=== PATIENT | male | born 1980 | race Caucasian/White ===

== ENCOUNTER → 2021-04-13 09:21 | Outpatient (CLI) | payer OTHER, SELFPAY ==
--- NOTE | ~2021-04-13 | US_ITS ---
EXAMINATION: US abdomen complete EXAM DATE: 04/13/2021 10:10 INDICATION: Liver disease. TECHNIQUE: Multiple grayscale and Doppler images of the complete abdomen were obtained (by a technolo gist who performed the scan) and subsequently reviewed. There is no prior study for comparison. FINDINGS: The abdominal aorta is normal in caliber. Visualized portion IVC is patent. The pancreatic head a nd body are normal in appearance. The pancreatic tail is not visualized. There is echogenic liver parenchyma, hepatic steatosis. There are no focal liver lesions identified. There is no evidence of intrahepatic biliary duct dilation. Portal venous flow was seen in the he patopedal, normal direction and has normal Doppler waveform. Common bile duct measures 11 mm, which is normal. The gallbladder wall is normal in thickness, with e xpected amount of distention. No sonographic evidence of pericholecystic fluid. There is no choleli thiases. Technologist performing exam reports patient did not demonstrate sonographic Orlando's sign. Please note that this sign is less reliable in patients who have received pain medication. Right kidney: There is normal contour and echogenicity. It measures 12.6 x 3.6 x 6.8 centimeters. There are no focal renal lesions identified. There is no hydronephrosis. Left kidney: There is normal contour and echogenicity. It measures 12.3 x 5.8 x 5.8 centimeters. T here are no focal renal lesions identified. There is no hydronephrosis. The spleen measures 11.3 centimeters and is morphologically normal. IMPRESSION: 1. Hepatic steatosis. Reviewed, dictated and finalized at location A. IMPRESSION: 1. Hepatic steatosis.
== END ==
PROVIDERS: PCP Emergency Medicine; Visit Provider Emergency Medicine
DX: K76.9 Liver disease, unspecified (principal); K76.0 Fatty (change of) liver, not elsewhere classified
CPT/HCPCS: 76700

== ENCOUNTER 2024-08-24 01:29 | Emergency (ER) | payer OTHER, SELFPAY ==
--- NOTE | ~2024-08-24 | CT_ITS ---
Non-contrast CT scan of the Abdomen and Pelvis Clinical indication: Left lower quadrant pain Technique: 2.5 mm axial scans were obtained through the abdomen and pelvis without intravenous or or al contrast. Dose reduction technique was used on this scan by utilizing automated exposure control a nd iterative reconstruction technique. The dose-length product (DLP) was 1938.30 mGy-cm. Findings: Images through the lung bases reveal no abnormalities. 5 mm left UVJ stone present, with mild left hydroureteronephrosis and mild left perinephric stranding . No right renal or right ureteral stone. No right hydronephrosis. There is diffuse hepatic steatosis. The spleen, pancreas, gallbladder, and adrenals appear normal. T here is no aortic aneurysm. There is no evidence of bowel obstruction. Images through the pelvis were performed. There is no evidence of ascites or lymphadenopathy. Urinary bladder otherwise unremarkable. Prostate gland and seminal vesicles are unremarkable. Impression: 5 mm left UVJ stone with mild left hydroureteronephrosis. Diffuse hepatic steatosis. Reviewed, dictated and finalized at [facility]. [employer]OR OF MANAGED SERVICES Impression: 5 mm left UVJ stone with mild left hydroureteronephrosis. Diffuse hepatic steatosis.
--- NOTE | ~2024-08-24 | US_ITS ---
Testicular ultrasound with doppler. Indication: Right testicular pain. Technique: Real-time sonography the scrotum was performed. Color flow Doppler and Doppler spectral an alysis were performed. Findings: The testes are homogeneous in echotexture bilaterally. There is no evidence of an intrates ticular mass. The right testis measures 2.3 x 1.2 x 1.9 cm and the left 2.1 x 1.5 x 1.8 cm. There is color-flow seen to both testes. Arterial and venous spectral waveforms are seen in both testes. There is no sonographic evidence of torsion. There is a 3 mm right epididymal cyst or spermatocele. Left e pididymis unremarkable. Impression: 3 mm right epididymal cyst or spermatocele. No testicular mass or torsion. Reviewed, dictated and finalized at [facility]. ODS ANALYST DATA PROCESSING Impression: 3 mm right epididymal cyst or spermatocele. No testicular mass or torsion.
[2024-08-24 01:32] VITALS: BP 150/102; PULSE 86; RESP 20; TEMP 36.8; O2SAT 98
[2024-08-24 05:06] VITALS: PULSE 85; RESP 17; O2SAT 99
[2024-08-24] MEDS: HYDROmorphone HCL INJ (*CRX) 1 MG/ML SYR IV PUSH (05:32)
[2024-08-24] MEDS: SODIUM CHLORIDE 0.9% IV 1,000 ML 999 ML IV CONT (05:33)
[2024-08-24 05:46] LABS: Basophils Absolute Auto 0.1 K/mm3 (0.0-0.1); Basophils Percent Auto 0.8 % (0.2-1.2); Eosinophils Absolute Auto 0.2 K/mm3 (0-0.3); Eosinophils Percent Auto 1.1 % (0-4.4); Hematocrit 45.8 % (42.0-52.0); Hemoglobin 16.1 g/dL (14.0-18.0); Immature Granulocyte Absolute 0.07 K/mm3 (0.00-0.031); Immature Granulocyte Percent A 0.4 % (0-0.5); Lymphocytes Percent Auto 10.2 % (18.3-44.2); Mean Corpuscular HGB Conc 35.2 g/dl (32-36); Mean Corpuscular Hemoglobin 31.3 pg (26-34); Mean Corpuscular Volume 89.1 fl (80-100); Mean Platelet Volume 9.5 fl (7.4-10.4); Monocytes Percent Auto 6.4 % (2.6-8.5); Neutrophils Absolute Auto 12.7 K/mm3 (1.3-6.7); Neutrophils Percent Auto 81.1 % (45.5-73.1); Platelet Count Result 252 k/mm3 (150-375); Red Blood Count 5.14 M/mm3 (4.6-6.20); White Blood Count 15.7 K/mm3 (4.5-10.0)
[2024-08-24 05:54] LABS: Add Urine Microscopic? NO; Appearance Urine Clear (Clear); Bacteria Urine None Seen /hpf; Bilirubin Urine Negative (Negative); Blood Urine Non-Hemolyzed Trace (Negative); Color Urine Yellow (Yellow); Glucose Urine UA Negative (Negative); Ketones Urine Trace mg/dL (Negative); Leukocyte Esterase Ur Negative LEU/UL (Negative); Nitrate Urine Negative (Negative); Non Pathogenic Casts 0-2; Protein Urine Negative (Negative); RBC Urine 0-2 /hpf (0-2); Specific Grav Ur 1.021 (1.001-1.035); Squamous Epithelial Cell Urine None Seen /hpf (Few); Urobilinogen Urine 0.2 mg/dL (<2.0); WBC Urine 0-5 /hpf (0-3)
[2024-08-24 05:57] LABS: Alanine Aminotransferase 76 U/L (6-50); Albumin Level 4.7 g/dL (3.5-5.1); Alkaline Phosphatase 70 U/L (38-126); Anion Gap 4 mmol/L (4-12); Aspartate Amino Transferase 34 U/L (17-59); Bilirubin,Total 0.7 mg/dL (0.2-1.3); Blood Urea Nitrogen 20 mg/dL (9-20); Calcium 9.6 mg/dL (8.4-10.2); Carbon Dioxide 29 mmol/L (22-30); Chloride 104 mmol/L (98-107); Estimated CRCL calculation 83 ml/min; Estimated Glomerular Filt Rate 51; Glucose 134 mg/dL (65-110); Potassium 4.4 mmol/L (3.4-5.0); Sodium 137 mmol/L (137-145)
--- NOTE | 2024-08-24 06:01 | ED.GENADULT ---
HPI - General Adult General Chief complaint: Nausea/Vomiting/Diarrhea Stated complaint: abd pain, n/v Time Seen by Provider: 08/24/24 05:00 History of Present Illness HPI narrative: this is a 44-year-old male presenting ED with chief complaint of left lower quadrant abdominal pain. Patient says he has got a throbbing pain in his left flank lower quadrant and left testicle. This is been on off throughout the day. He had a virtual visit with his primary care physician as mentioned instructed to come to the ED. patient has had associated nausea vomiting. Denies fevers chills chest pain difficulty breathing dysuria urgency or frequency. Related Data Allergies Allergy/AdvReac Type Severity Reaction Status Date / Time iodine Allergy Rash Verified 08/24/24 06:50 Exam Narrative: APPEARANCE: No apparent distress. Head: atraumatic. EYES: EOMI, NOSE: Atraumatic NECK: Trachea midline RESPIRATORY: No increased rate of breathing CARDIOVASCULAR: RRR, ABDOMINAL: Tenderness palpation left quadrant with voluntary guarding. no CVA tenderness genital exam: testicles have normal lie, no significant tenderness on exam, cremasteric intact MUSCULOSKELETAl: No obvious deformities NEURO: Alert. Moving 4/4 extremities SKIN:: Warm, dry. Normal color PSYCHIATRIC: Normal affect Course Vital Signs Vital signs: Vital Signs Temperature 98.2 F 08/24/24 01:32 Pulse Rate 86 08/24/24 01:32 Respiratory Rate 20 08/24/24 01:32 Blood Pressure 150/102 H 08/24/24 01:32 Pulse Oximetry 98 08/24/24 01:32 Oxygen Delivery Room Air 08/24/24 01:32 Temperature 98.2 F 08/24/24 01:32 Pulse Rate 72 08/24/24 06:49 Respiratory Rate 17 08/24/24 06:49 Blood Pressure 160/91 H 08/24/24 06:49 Pulse Oximetry 98 08/24/24 06:49 Oxygen Delivery Room Air 08/24/24 01:32 Medical Decision Making [facility] Narrative Medical decision making narrative: -Course: 44-year-old male presenting with left-sided abdominal pain radiating his testicles. CT abdomen pelvis showed a 5 mm UVJ stone. Urine not indicative infection. White count elevated but likely reactive. Scrotal ultrasound negative. Patient's pain was controlled in ED. He already has a urologist Dr. Vincent who he will follow up with. Given return precautions. -DDX includes but is not limited to: Kidney stone, UTI, muscle strain, orchitis, testicular torsion, epididymitis -Independent interpretation of studies: white count 15.7 creatinine 1.5. No baseline available Vital Signs Vital Signs: Vital Signs Temperature 98.2 F 08/24/24 01:32 Pulse Rate 86 08/24/24 01:32 Respiratory Rate 20 08/24/24 01:32 Blood Pressure 150/102 H 08/24/24 01:32 Pulse Oximetry 98 08/24/24 01:32 Oxygen Delivery Room Air 08/24/24 01:32 Temperature 98.2 F 08/24/24 01:32 Pulse Rate 72 08/24/24 06:49 Respiratory Rate 17 08/24/24 06:49 Blood Pressure 160/91 H 08/24/24 06:49 Pulse Oximetry 98 08/24/24 06:49 Oxygen Delivery Room Air 08/24/24 01:32 Lab Data 08/24/24 05:36 08/24/24 05:36 Labs: Lab Results 08/24/24 Range/Units 05:36 WBC 15.7 H (4.5-10.0) K/mm3 RBC 5.14 (4.6-6.20) M/mm3 Hgb 16.1 (14.0-18.0) g/dL Hct 45.8 (42.0-52.0) % MCV 89.1 (80-100) fl MCH 31.3 (26-34) pg MCHC 35.2 (32-36) g/dl RDW 13.0 (11.5-14.5) % Plt Count 252 (150-375) k/mm3 MPV 9.5 (7.4-10.4) fl Immature Gran % (Auto) 0.4 (0-0.5) % Neut % (Auto) 81.1 H (45.5-73.1) % Lymph % (Auto) 10.2 L (18.3-44.2) % Mclean % (Auto) 6.4 (2.6-8.5) % Eos % (Auto) 1.1 (0-4.4) % Baso % (Auto) 0.8 (0.2-1.2) % Lymph # (Auto) 1.60 (0.9-3.2) K/mm3 Mclean # (Auto) 1.0 H (0.1-0.6) K/mm3 Eos # (Auto) 0.2 (0-0.3) K/mm3 Baso # (Auto) 0.1 (0.0-0.1) K/mm3 Abs Immat Gran (auto) 0.07 H (0.00-0.031) K/mm3 Absolute Neuts (auto) 12.7 H (1.3-6.7) K/mm3 Absolute Nucleated RBC 0.000 (0.0-0.012) K/mm3 Nucleated RBC % 0.0 (0.0-0.2) % Sodium 137 (137-145) mmol/L Potassium 4.4 (3.4-5.0) mmol/L Chloride 104 (98-107) mmol/L Carbon Dioxide 29 (22-30) mmol/L Anion Gap 4 (4-12) mmol/L BUN 20 (9-20) mg/dL Creatinine 1.50 H (0.7-1.3) mg/dL Estim Creat Clear Calc 83 ml/min Estimated GFR 51 L (59 - ) Glucose 134 H (65-110) mg/dL Calcium 9.6 (8.4-10.2) mg/dL Total Bilirubin 0.7 (0.2-1.3) mg/dL AST 34 (17-59) U/L ALT 76 H (6-50) U/L Alkaline Phosphatase 70 (38-126) U/L Total Protein 7.0 (6.3-8.2) g/dL Albumin 4.7 (3.5-5.1) g/dL Urine Color Yellow (Yellow) Urine Appearance Clear (Clear) Urine pH 5.0 (5.0-9.0) Ur Specific Helena 1.021 (1.001-1.035) Urine Protein Negative (Negative) mg/dL Urine Glucose (UA) Negative (Negative) mg/dL Urine Ketones Trace H (Negative) mg/dL Ur Blood (Man) Non-hemolyzed trace (Negative) Urine Nitrate Negative (Negative) Urine Bilirubin Negative (Negative) Urine Urobilinogen 0.2 (<2.0) mg/dL Leukocyte Esterase Rfl Negative (Negative) JAKE/UL Urine RBC 0-2 (0-2) /hpf Urine WBC 0-5 (0-3) /hpf Ur Squamous Epith Cells None seen (Few) /hpf Urine Bacteria None seen /hpf Urine Casts 0-2 Discharge Plan Discharge Clinical Impression: Kidney stone Patient Disposition: Home, Self-Care Condition: Stable Instructions: Antibiotic Form, Kidney Stones (ED) Additional Instructions: You were seen in the emergency department for a kidney stone. Please use Motrin/Tylenol for pain. Use oxycodone for breakthrough pain. Use Zofran for nausea. Please follow-up with your Urologist for further management. Please return if you develop severe pain, fevers or intractable nausea and vomiting. Patient Language: Vincentian Prescriptions: New acetaminophen 500 mg tablet 1,000 mg PO TID PRN (Reason: martha) 7 Days Qty: 42 0RF ibuprofen 800 mg tablet 800 mg PO TID PRN (Reason: pain) 7 Days Qty: 21 0RF ondansetron 4 mg tablet,disintegrating 4 mg PO Q8H PRN (Reason: nausea and vomiting) Qty: 30 0RF oxycodone 5 mg tablet 5 mg PO Q4H PRN (Reason: pain) Qty: 14 0RF tamsulosin [Flomax] 0.4 mg capsule 0.4 mg PO DAILY Qty: 30 0RF Follow-up/Referrals: Kathrine Ren MD [Physician] - 1 Week (Kidney stone ) Harley Villanueva MD [Primary Care Provider] -
[2024-08-24 06:49] VITALS: BP 160/91; PULSE 72; RESP 17; O2SAT 98
[2024-08-24] MEDS: HYDROmorphone HCL INJ (*CRX) 1 MG/ML SYR 0.5 MG IV PUSH (07:25)
[2024-08-24] MEDS: KETOROLAC 15 MG/ML VIAL (*BKC) IV PUSH (07:25)
[2024-08-24] MEDS: ACETAMINOPHEN 500 MG TABLET 1000 MG PO (07:25)
--- OUTSIDE RECORDS SUMMARY | 2024-08-31 04:48 | XMS_ITS ---
Author Organization [facility] Address [address] [place] [address] Care Team Providers Care Fig Bar Machine Operator Name Role Phone Tracy De La Torre Primary Care Provider Allison Luciano Unavailable [phone] Luis Hu [phone] REASON FOR VISIT SCIT - Traditional Schedule Allergy Immunotherapy (Week ) Medications Medication SIG (Take, Route, Frequency, Duration) Notes Start Date End Date Status EPINEPHrine 0.3 MG/0.3ML as directed Inj ection as needed for 30 days 06/19/2024 Active Trelegy Ellipta 200-62.5-25 MCG/ACT 1 puff Inhalation Once a day for 30 days Active Famotidine 20 MG 1 tablet Orally Twic e a day for 30 days Active Cetirizine HCl 10 MG 1 tablet Orally Twi ce a day for 30 days Active Montelukast Sodium 10 MG 1 tablet Orally Once a day for 90 days Active Nasal Wash - as directed Nasally Active EPINEPHrine 0.3 MG/0.3ML as directed Inj ection as directed for 30 days 05/31/2024 Active Dupixent Active Vanicream - as directed Externally Active Albuterol Sulfate HFA 108 (90 Base) MCG/ACT 2 puffs as needed Inhalation every 4 hrs for 30 days Active SIT (Cluster) variable - see record per schedule subcutaneous per schedule for 999 06/19/2024 Active Encounters Encounter Location Date Provider Diagnosis [facility] [address] [place] [address] 08/23/2024 Luis Hu Allergic rhinitis du e to pollen J30.1 ; Other allergic rhinitis J30.89 ; Allergic rhinitis due to animal (cat) (dog) hair and dander J30.81 and Other chronic allergic conjunctivitis H10.45 Assessments Encounter Date Diagnosis (ICD Code) Assessment Notes Treatment Notes Treatment Clinical Notes Section Notes 08/23/2024 Allergic rhinitis due to pollen (ICD-10 - J30.1) 08/23/2024 Other allergic rhinitis (ICD-10 - J30.89) 08/23/2024 Allergic rhinitis due to animal (cat) (dog) hair and dander (ICD-10 - J30.81) 08/23/2024 Other chronic allergic conjunctivitis (ICD-10 - H10.45) Plan Of Treatment Next Appt Details Follow Up: As scheduled, Marlena son: Provider Name:Luis Hu , 09/10/2024 07:40:00 AM, [address] [facility], [address], [address], Provider Name:Luis Hu , 09/17/2024 07:50:00 AM, [facility], [address], [address], Provider Name:Luis Hu , 09/25/2024 07:30:00 AM, [facility], [address], [address], Progress Notes * Vaughn PARKERDOB:1980 ( 44 yo M)Acc No.[id number]:08/23/2024 SCIT-Aeroallergen Patient:?Vaughn PARKER Provider:?Luis Hu MD :1980???Age:44 Y???Sex:Male Ramo e:08/23/2024 Address:[address], [place], [place] Pcp:Tracy De La Torre Subjective: * Chief Complaints: * ???SCIT - Traditional [place] Allergy Immunotherapy (Week ) * HPI: ???*Introduction:? The patient is here for scheduled immunotherapy. Please see the attached specialty form regarding the specifics of the administration of these vaccines. As per our protocol, they must undergo a screening health questionnaire (medication changes, reaction(s) to last immunotherapy dose(s), current health status, ACT (if appropriate), self-injectable epinephrine on patient(?) and peak flow (if appropriate)). Also, the patient must wait in our office for 30 minutes after receiving the vaccine(s). Furthermore, every patient must have an epinephrine pen (self-injectable) with them at the time of administration--and carry if for the following 1.5 hours after they leave our office. The patient must also have taken their antihistamine the day of the injection, preferably 2 hours prior. The consent form for SCIT (subcutaneous immunotherapy) is on file. * Medical History:? * Surgical History:? * Hospitalization/Major Diagno stic Procedure:? * Medications:?TakingEPINEPHri ne 0.3 MG/0.3ML Solution Auto-injector as directed Injection as directed Nasal Wash - Solution as directed Nasally Vanicream - Ointment as directed Externally Dupixent Albuterol Sulfate HFA 108 (90 Base) MCG/ACT Aerosol Solution 2 puffs as needed Inhalation every 4 hrs Trelegy Ellipta 200-62.5-25 MCG/ACT Aerosol Powder Breath Activated 1 puff Inhalation Once a day Cetirizine HCl 10 MG Tablet 1 tablet Orally Twice a day Famotidine 20 MG Tablet 1 tablet Orally Twice a day Montelukast Sodium 10 MG Tablet 1 tablet Orally Once a day EPINEPHrine 0.3 MG/0.3ML Solution Auto-injector as directed Injection as needed SIT (Cluster) variable - see record variable - see record per schedule subcutaneous per schedule Taking EPINEPHrine 0.3 MG/0.3ML Solution Auto-injector as directed Injection as directed Taking Nasal Wash - Solution as directed Nasally Taking Vanicream - Ointment as directed Externally Taking Dupixent Taking Albuterol Sulfate HFA 108 (90 Base) MCG/ACT Aerosol Solution 2 puffs as needed Inhalation every 4 hrs Taking Trelegy Ellipta 200-62.5-25 MCG/ACT Aerosol Powder Breath Activated 1 puff Inhalation Once a day Taking Cetirizine HCl 10 MG Tablet 1 tablet Orally Twice a day Taking Famotidine 20 MG Tablet 1 tablet Orally Twice a day Taking Montelukast Sodium 10 MG Tablet 1 tablet Orally Once a day Taking EPINEPHrine 0.3 MG/0.3ML Solution Auto-injector as directed Injection as needed Taking SIT (Cluster) variable - see record variable - see record per schedule subcutaneous per schedule Objective: * Vitals:? Assessment: * Assessment: 1.?Allergic rhinitis due to pollen - J30.1 (Primary)???2.?Other allergic rhinitis - J30.89???3.?Allergic rhinitis due to animal (cat) (dog) hair and dander - J30.81???4.?Other chronic allergic conjunctivitis - H10.45??? Plan: * Treatment: * Procedure Codes:?55383 IMMUN OTHERAPY INJECTIONS * Preventive Medicine:? ??Counseling:?Exercise?Avoid heavy lifting on days of allergy immunotherapy.?Medication instruction:?Injectable epinephrine education and instruction w/ discussion of signs and symptoms of anaphylaxis and reasons to seek urgent or emergent care, Watch for side effects of prescribed medications.?Education:?Able to return demonstration of self-injectable epinephrine.? * Follow Up:?As scheduled * Billing Information: * Visit Code:? * Procedure Codes:? 63569 IMMUNOTHERAPY INJECTIONS. * INE PULLER OVER Sign off status: Completed true * Provider:?Luis Hu MD Date:?08/23 Generated for Yessy carvalho/Paola/Kathy on:?08/31/2024 04:47 AM MACHINE PULLER OVER History and Physical Notes * HPI (History of Present Illness) Category Sub-Category Detail Notes Category Not es *Introduction The patient is here for scheduled immunotherapy. Please see the attached specialty form regarding the specifics of the administration of these vaccines. As per our protocol, they must undergo a screening health questionnaire (medication changes, reaction(s) to last immunotherapy dose(s), current health status, ACT (if appropriate), self-injectable epinephrine on patient(?) and peak flow (if appropriate)). Also, the patient must wait in our office for 30 minutes after receiving the vaccine(s). Furthermore, every patient must have an epinephrine pen (self-injectable) with them at the time of administration--and carry if for the following 1.5 hours after they leave our office. The patient must also have taken their antihistamine the day of the injection, preferably 2 hours prior. The consent form for SCIT (subcutaneous immunotherapy) is on file.
--- OUTSIDE RECORDS SUMMARY | 2024-08-31 04:48 | XMS_ITS | Encounter Summary ---
Author Organization [facility] Healthcare Address [address] [place] [address] Care Team Providers Care Dressing Room Attendant Name Role Phone rTacy De La Torre NP Primary Care Provider Azra Pinon MD Unavailable [phone] Kahtrine Ren MD Unavailable [phone] Encounter Details Date Type Department Care Team (Late st Contact Info) Description 05/21/[address] 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 Gender Identity Not on file Sexual Orientation Not on file documented as of this encounter Ordered Prescriptions Prescription Sig Dispense Quantity Refills Last Filled Start Date End Date semaglutide (Wegovy) 0.25 mg/0.5 mL auto-injector Inject 0.5 mL (0.25 mg total) under the skin every 7 days 3 mL 1 05/21/2024 08/06/2024 documented in this encounter Plan of Treatment Not on file documented as of this encounter Visit Diagnoses Not on filedocumented in this encounter Care Teams Dressing Room Attendant Relationship Specialty Start Date End Date Tracy De La Torre NP [address] [place], [place] [id number] PCP - General Family Medicine 05/16/24 Azra Pinon MD [address] [place], [place] [id number] Referring Physician Dermatology 05/16/24 Kathrine Ren MD [address] [place] [address] Consulting Physician Urology 05/16/24 Allison Holm [address] [facility] [address] [place] [address] Collections And Archives Director Dermatology 05/16/24 documented as of this encounter
--- OUTSIDE RECORDS SUMMARY | 2024-08-31 04:48 | XMS_ITS | Encounter Summary ---
Author Organization [facility] Healthcare Address [address] [place] [address] Care Team Providers Care Basketball Player Name Role Phone Tracy De La Torre NP Primary Care Provider [phone] Azra Pinon MD Unavailable [phone] Kathrine Ren MD Unavailable [phone] Encounter Details Date Type Department Care Team (Late st Contact Info) Description 08/23/2024 Patient Self-Triage [facility] HealthCare/ Physicians [facility] [place] [address] Mychart, Generic Provider [address] [place], [place] [id number] Social History Tobacco Use Types Packs/Day Years [...] on file 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 Gender Identity Not on file Sexual Orientation Not on file documented as of this encounter Plan of Treatment Not on file documented as of this encounter Visit Diagnoses Not on filedocumented in this encounter Care Teams Basketball Player Relationship Specialty Start Date End Date Tracy De La Torre NP [address] [facility] [address] [place] [address] PCP - General Family Medicine 05/16/24 Azra Pinon MD [address] [place] [address] Referring Physician Dermatology 05/16/24 Kathrine Ren MD [address] [place], [place] [phone] Consulting Physician Urology 05/16/24 Allison Holm [address] [facility] [address] [place] [address] Enterer Dermatology 05/16/24 documented as of this encounter
--- OUTSIDE RECORDS SUMMARY | 2024-08-31 04:48 | XMS_ITS | Patient Health Record ---
Author Organization [facility] Address [address] [place] [address] Care Team Providers Care Bulb Filler Name Role Phone Tracy De La Torre Primary Care Provider Allison Luciano Unavailable [phone] Luis Hu Unavailable [phone] Stephen Valencia Unavailable [phone] Allergies No Known Allergies Results Component Value Reference Range Notes Spirometry Reviewed date:04/10/2024 09:11:30 AM Interpretation:Abnormal Performing Lab: Notes/Report: Abnormal SpiroPreBronchodilator_FVC 4.55 SpiroPostBronchodilator_FEF25_75 0 SpiroPreBronchodilator_FEF25_75 3.17 SpiroPreBronchodilator_FEV1 3.36 SpiroPrecentPredictionPost_FEF25_75 0 SpiroPrecentPredictionPost_FEV1 0 SpiroPrecentPredictionPost_FEV1_OVER_FVC 0 SpiroPrecentPredictionPost_FVC 0 SpiroPrecentPredictionPre_FEF25_75 73.2 SpiroPrecentPredictionPre_FEV1 74 SpiroPrecentPredictionPre_FEV1_OVER_FVC 92.9 SpiroPrecentPredictionPre_FVC 79.7 SpiroPredicted_FEF25_75 4.33 SpiroPreBronchodilator_FEV1_OVER_FVC 73.84 SpiroPreBronchodilator_PEF 3.57 SpiroPostBronchodilator_FVC 0 SpiroPostBronchodilator_FEV1 0 SpiroPostBronchodilator_FEV1_OVER_FVC 0 SpiroPostBronchodilator_PEF 0 SpiroPredicted_FVC 5.71 SpiroPredicted_FEV1 4.54 SpiroPredicted_FEV1_OVER_FVC 79.52 SpiroPredicted_PEF 10.17 Spirometry Reviewed date:05/21/2024 10:59:17 AM Interpretation:Abnormal - FVL Performing Lab: Notes/Report: Abnormal - FVL SpiroPreBronchodilator_FVC 4.65 SpiroPostBronchodilator_FEF25_75 0 SpiroPreBronchodilator_FEF25_75 4.67 SpiroPreBronchodilator_FEV1 4.15 SpiroPrecentPredictionPost_FEF25_75 0 SpiroPrecentPredictionPost_FEV1 0 SpiroPrecentPredictionPost_FEV1_OVER_FVC 0 SpiroPrecentPredictionPost_FVC 0 SpiroPrecentPredictionPre_FEF25_75 107.9 SpiroPrecentPredictionPre_FEV1 91.4 SpiroPrecentPredictionPre_FEV1_OVER_FVC 112.3 SpiroPrecentPredictionPre_FVC 81.4 SpiroPredicted_FEF25_75 4.33 SpiroPreBronchodilator_FEV1_OVER_FVC 89.3 SpiroPreBronchodilator_PEF 5.31 SpiroPostBronchodilator_FVC 0 SpiroPostBronchodilator_FEV1 0 SpiroPostBronchodilator_FEV1_OVER_FVC 0 SpiroPostBronchodilator_PEF 0 SpiroPredicted_FVC 5.71 SpiroPredicted_FEV1 4.54 SpiroPredicted_FEV1_OVER_FVC 79.52 SpiroPredicted_PEF 10.17 Reason For Referral No Information Medications Medication SIG (Take, Route, Frequency, Duration) Notes Start Date End Date Status Cetirizine HCl 10 MG 1 tablet Orally Twi ce a day for 30 days Active Trelegy Ellipta 200-62.5-25 MCG/ACT 1 puff Inhalation Once a day for 30 days Active Albuterol Sulfate HFA 108 (90 Base) MCG/ACT 2 puffs as needed Inhalation every 4 hrs for 30 days Active Dupixent Active Vanicream - as directed Externally Active Nasal Wash - as directed Nasally Active EPINEPHrine 0.3 MG/0.3ML as directed Inj ection as directed for 30 days 05/31/2024 Active Montelukast Sodium 10 MG 1 tablet Orally Once a day for 90 days Active SIT (Cluster) variable - see record per schedule subcutaneous per schedule for 999 06/19/2024 Active EPINEPHrine 0.3 MG/0.3ML as directed Inj ection as needed for 30 days 06/19/2024 Active Famotidine 20 MG 1 tablet Orally Twic e a day for 30 days Active Social History Tobacco Use: Social History Observation Description Date Details (start date - stop date) Current Smoker NA - NA Tobacco Control (Standard) Question Answer Notes Tobacco use: Current smoker Problems Problem Type SNOMED Code ICD Code Onset Dates Problem Status W/U Status Risk Notes Problem Chronic allergic conjunctivitis (10052067) Other chronic allergic conjunctivitis (H10.45) Active confirmed Problem Allergic rhinitis caused by pollen (disorder) (24438079) Allergic rhinitis due to pollen (J30.1) Active confirmed Problem Allergic rhinitis (75819535) Other allergic rhinitis (J30.89) Active confirmed Problem Atopic dermatitis (23943126) Atopic dermatitis, unspecified (L20.9) Active confirmed Problem Allergic rhinitis caused by animal hair and dander (098067790839917) Allergic rhinitis due to animal (cat) (dog) hair and dander (J30.81) Active confirmed Vital Signs Oximetry 95 % 08/07/2024 Blood pressure diastolic 86 mm Hg 08/07/2024 Height 74 in 08/07/2024 Blood pressure systolic 131 mm Hg 08/07/2024 Weight 295 lbs 06/19/2024 BMI 37.87 kg/m2 06/19/2024 Encounters Encounter Location Date Provider Diagnosis [facility] [address] [facility] [employer] [address] [address] 04/09/2024 Allison Holm Atopic dermatitis, unspecified L20.9 ; Rash and other nonspecific skin eruption R21 ; Allergic rhinitis due to pollen J30.1 ; Allergic rhinitis due to animal (cat) (dog) hair and dander J30.81 ; Other allergic rhinitis J30.89 ; Other chronic allergic conjunctivitis H10.45 ; Wheezing R06.2 and Elevated blood-pressure reading, without diagnosis of hypertension R03.0 [facility] [address] [employer] [address] [address] 05/21/2024 Allison Holm Allergic rhinitis du e to pollen J30.1 ; Allergic rhinitis due to animal (cat) (dog) hair and dander J30.81 ; Other allergic rhinitis J30.89 ; Other chronic allergic conjunctivitis H10.45 ; Atopic dermatitis, unspecified L20.9 ; Rash and other nonspecific skin eruption R21 ; Wheezing R06.2 and Elevated blood-pressure reading, without diagnosis of hypertension R03.0 [facility] [address] [place] [address] [employer] [address] [address] 06/19/2024 Stephen Valencia Allergic rhinitis du e to pollen J30.1 ; Allergic rhinitis due to animal (cat) (dog) hair and dander J30.81 ; Other allergic rhinitis J30.89 ; Other chronic allergic conjunctivitis H10.45 ; Atopic dermatitis, unspecified L20.9 ; Rash and other nonspecific skin eruption R21 ; Wheezing R06.2 and Elevated blood-pressure reading, without diagnosis of hypertension R03.0 [facility] [address] [place] [address] [employer] [address] [address] 06/26/2024 Luis Hu Allergic rhinitis du e to pollen J30.1 ; Allergic rhinitis due to animal (cat) (dog) hair and dander J30.81 ; Other allergic rhinitis J30.89 and Other chronic allergic conjunctivitis H10.45 [facility] [address] [place] [address] 07/03/2024 Luis Hu Allergic rhinitis du e to pollen J30.1 ; Allergic rhinitis due to animal (cat) (dog) hair and dander J30.81 ; Other allergic rhinitis J30.89 and Other chronic allergic conjunctivitis H10.45 [facility] [address] [place] [phone] 07/12/2024 Luis Hu Allergic rhinitis du e to pollen J30.1 ; Allergic rhinitis due to animal (cat) (dog) hair and dander J30.81 ; Other allergic rhinitis J30.89 and Other chronic allergic conjunctivitis H10.45 [facility] [address] [place] [phone] 07/17/2024 Luis Hu Allergic rhinitis du e to pollen J30.1 ; Allergic rhinitis due to animal (cat) (dog) hair and dander J30.81 ; Other allergic rhinitis J30.89 and Other chronic allergic conjunctivitis H10.45 [facility] [address] [place], [place] [email or web address] [address] [address] 07/24/2024 Luis Hu Allergic rhinitis du e to pollen J30.1 ; Allergic rhinitis due to animal (cat) (dog) hair and dander J30.81 ; Other allergic rhinitis J30.89 and Other chronic allergic conjunctivitis H10.[address] [place] [address] [employer] [address] [address] 07/31/2024 Luis Hu Allergic rhinitis du e to pollen J30.1 ; Allergic rhinitis due to animal (cat) (dog) hair and dander J30.81 ; Other allergic rhinitis J30.89 and Other chronic allergic conjunctivitis H10.45 [facility] [address] [place] [address] [employer] [address] [address] 08/07/2024 Luis Hu Allergic rhinitis du e to pollen J30.1 ; Allergic rhinitis due to animal (cat) (dog) hair and dander J30.81 ; Other allergic rhinitis J30.89 and Other chronic allergic conjunctivitis H10.45 [facility] [address] [place] [address] [employer] [address] [address] 08/13/2024 Luis Hu Allergic rhinitis du e to pollen J30.1 ; Other allergic rhinitis J30.89 ; Allergic rhinitis due to animal (cat) (dog) hair and dander J30.81 and Other chronic allergic conjunctivitis H10.45 [facility] [address] [place] [address] [employer] [address] [address] 08/23/2024 Luis Hu Allergic rhinitis du e to pollen J30.1 ; Other allergic rhinitis J30.89 ; Allergic rhinitis due to animal (cat) (dog) hair and dander J30.81 and Other chronic allergic conjunctivitis H10.45 [facility] [address] [place], [place] [email or web address] [address] [address] 08/28/2024 Luis Hu Allergic rhinitis du e to pollen J30.1 ; Other allergic rhinitis J30.89 ; Allergic rhinitis due to animal (cat) (dog) hair and dander J30.81 and Other chronic allergic conjunctivitis H10.45 [facility] [address] [place], [place] [email or web address] [address] [address] 05/21/2024 Allison Holm [facility] [address] [place] [address] 05/30/[address] [facility] [address] [place] [address] 08/23/2024 Allison Holm Rash and other nonspecific skin eruption R21 Assessments Encounter Date Diagnosis (ICD Code) Assessment Notes Treatment Notes Treatment Clinical Notes Section Notes 04/09/2024 Rash and other nonspecific skin eruption (ICD-10 - R21) As above, Vaughn presents with complaints of erythematous and pruritic patches on his lower extremities. These symptoms seemed to start after he started treatment with Dupixent. No history of biopsies per the patient, however no records to review. - Consider atopic dermatitis vs contact dermatitis vs other. - Due to pruritus will start trial of Zyrtec BID, Pepcid BID and Singulair at night. - Follow-up skin care regimen as outlined above. - Consider patch testing with Dormer AC-1000, which we discussed today. Will trial skin care regimen first, then consider patch testing if symptoms do not improve. Discussed use all free and clear products. - Records requested from [facility]. - Follow-up in 4 weeks for further evaluation and management 04/09/2024 Atopic dermatitis, unspecified (ICD-10 - L20.9) Vaughn presents reporting history of atopic dermatitis diagnosed by [facility]. He reports long standing hsitroy of eczema on his hands. Approximately 12 months ago he was started on Dupixent every 2 weeks, which he feels has significantly improved his symptoms. Howver, he is now experiencing new rashes, primarily on his lower extremities. He describes the rash as erythematous and pruritic. Symptoms last > 3 weeks. He has been using topical clobetasol per dematology with mild noted benefit. No history of biopsy to rash on lower extremities. - Consider atopic dermatitis vs contact dermatitis vs other. - In regard to atopic dermatitis, continue Dupixent per dermatology. Highly consider SCIT, which we will discuss further next visit. - The mainstay of treatment is repairing the skin barrier. Discussed the role of fillagrin in maintaining this barrier. In people with eczema, this barrier is less strong and more permeable than it should be. - Discussed the Soak, Smear, & Seal technique. Plan on bathing in tepid warm water for 20 minutes daily. Upon exiting tub, pat dry with soft cotton towel and apply prescribed topical medication to any areas of eczema. Then apply a thick emollient to ALL skin surface to lock in moisture. Suggested Vanicream line. - Keep nails short and avoid scratching. - See plan below. - Follow-up in 4 weeks for further evaluation and management 05/21/2024 Allergic rhinitis due to pollen (ICD-10 - J30.1) Vaughn clearly suffers from atopic disease based upon our skin testing and clinical history. Accordingly, we have encouraged his medication regimen, discussed nasal washes and allergy-specific avoidance measures. We also discussed adjunctive therapies including subcutaneous, specific allergen immunotherapy as relates to the treatment and prevention of atopic disease. - Vaughn is interested in SCIT via rapid desensitization. Janeth to premedicate with Zyrtec. Will send AIE when Vaughn is starting SCIT. - Follow-up as scheduled to start SCIT 05/21/2024 Allergic rhinitis due to animal (cat) (dog) hair and dander (ICD-10 - J30.81) Follow allergen avoidance, meds and consider SCIT as an adjunctive treatment to current regimen 06/19/2024 Allergic rhinitis due to pollen (ICD-10 - J30.1) Vaughn clearly suffers from atopic disease based upon our skin testing and clinical history. Accordingly, we have encouraged his medication regimen, discussed nasal washes and allergy-specific avoidance measures. We elected to start SCIT via rapid desensitization which he tolerated without LL or systemic reaction. Continue to premedicate with Zyrtec. Keep AIE on hand 2 hours after SCIT - return in 1 week for SCIT adn 7 weeks for E&M 06/19/2024 Allergic rhinitis due to animal (cat) (dog) hair and dander (ICD-10 - J30.81) Follow allergen avoidance, meds and continue SCIT as an adjunctive treatment to current regimen 06/26/2024 Allergic rhinitis due to pollen (ICD-10 - J30.1) 07/03/2024 Allergic rhinitis due to pollen (ICD-10 - J30.1) 07/12/2024 Allergic rhinitis due to pollen (ICD-10 - J30.1) 07/17/2024 Allergic rhinitis due to pollen (ICD-10 - J30.1) 07/24/2024 Allergic rhinitis due to pollen (ICD-10 - J30.1) 07/31/2024 Allergic rhinitis due to pollen (ICD-10 - J30.1) 08/07/2024 Allergic rhinitis due to pollen (ICD-10 - J30.1) 08/13/2024 Allergic rhinitis due to pollen (ICD-10 - J30.1) 08/13/2024 Other allergic rhinitis (ICD-10 - J30.89) 08/23/2024 Allergic rhinitis due to pollen (ICD-10 - J30.1) 08/23/2024 Other allergic rhinitis (ICD-10 - J30.89) 08/23/2024 Rash and other nonspecific skin eruption (ICD-10 - R21) 08/28/2024 Allergic rhinitis due to pollen (ICD-10 - J30.1) 08/28/2024 Other allergic rhinitis (ICD-10 - J30.89) 08/28/2024 Allergic rhinitis due to animal (cat) (dog) hair and dander (ICD-10 - J30.81) 08/23/2024 Allergic rhinitis due to animal (cat) (dog) hair and dander (ICD-10 - J30.81) 08/13/2024 Allergic rhinitis due to animal (cat) (dog) hair and dander (ICD-10 - J30.81) 08/07/2024 Allergic rhinitis due to animal (cat) (dog) hair and dander (ICD-10 - J30.81) 07/31/2024 Allergic rhinitis due to animal (cat) (dog) hair and dander (ICD-10 - J30.81) 07/24/2024 Allergic rhinitis due to animal (cat) (dog) hair and dander (ICD-10 - J30.81) 07/17/2024 Allergic rhinitis due to animal (cat) (dog) hair and dander (ICD-10 - J30.81) 07/12/2024 Allergic rhinitis due to animal (cat) (dog) hair and dander (ICD-10 - J30.81) 07/03/2024 Allergic rhinitis due to animal (cat) (dog) hair and dander (ICD-10 - J30.81) 06/26/2024 Allergic rhinitis due to animal (cat) (dog) hair and dander (ICD-10 - J30.81) 06/19/2024 Other allergic rhinitis (ICD-10 - J30.89) Follow allergen avoidance, meds and continue SCIT as an adjunctive treatment to current regimen 05/21/2024 Other allergic rhinitis (ICD-10 - J30.89) Follow allergen avoidance, meds and consider SCIT as an adjunctive treatment to current regimen 04/09/2024 Allergic rhinitis due to pollen (ICD-10 - J30.1) Given the history and symptoms, skin testing was performed to common aeroallergens to determine atopic status. Vaughn clearly suffers from atopic disease based upon our skin testing and clinical history. Accordingly, we have introduced a new medication regimen, discussed nasal washes and allergy-specific avoidance measures. We also discussed adjunctive therapies including subcutaneous, specific allergen immunotherapy as relates to the treatment and prevention of atopic disease. - Vaughn reports only occasional upper airway symptoms. - Plan to discuss SCIT in further detail at his next follow-up. - Follow-up in 4 weeks as above 04/09/2024 Allergic rhinitis due to animal (cat) (dog) hair and dander (ICD-10 - J30.81) Follow allergen avoidance, meds and consider SCIT as an adjunctive treatment to current regimen 05/21/2024 Other chronic allergic conjunctivitis (ICD-10 - H10.45) Given ocular signs and symptoms I encouraged allergy avoidance measures and meds as above. If symptoms persist, consider adding additional medications including intraocular antihistamine/mast cell stabilizer, PRN and consider SCIT as an adjunctive measure 06/19/2024 Other chronic allergic conjunctivitis (ICD-10 - H10.45) Given ocular signs and symptoms I encouraged allergy avoidance measures and meds as above. If symptoms persist, consider adding additional medications including intraocular antihistamine/mast cell stabilizer, PRN and continue SCIT as an adjunctive measure 06/26/2024 Other allergic rhinitis (ICD-10 - J30.89) 07/03/2024 Other allergic rhinitis (ICD-10 - J30.89) 07/12/2024 Other allergic rhinitis (ICD-10 - J30.89) 07/17/2024 Other allergic rhinitis (ICD-10 - J30.89) 07/24/2024 Other allergic rhinitis (ICD-10 - J30.89) 07/31/2024 Other allergic rhinitis (ICD-10 - J30.89) 08/07/2024 Other allergic rhinitis (ICD-10 - J30.89) 08/13/2024 Other chronic allergic conjunctivitis (ICD-10 - H10.45) 08/23/2024 Other chronic allergic conjunctivitis (ICD-10 - H10.45) 08/28/2024 Other chronic allergic conjunctivitis (ICD-10 - H10.45) 08/07/2024 Other chronic allergic conjunctivitis (ICD-10 - H10.45) 07/31/2024 Other chronic allergic conjunctivitis (ICD-10 - H10.45) 07/17/2024 Other chronic allergic conjunctivitis (ICD-10 - H10.45) 07/24/2024 Other chronic allergic conjunctivitis (ICD-10 - H10.45) 07/12/2024 Other chronic allergic conjunctivitis (ICD-10 - H10.45) 07/03/2024 Other chronic allergic conjunctivitis (ICD-10 - H10.45) 06/26/2024 Other chronic allergic conjunctivitis (ICD-10 - H10.45) 06/19/2024 Atopic dermatitis, unspecified (ICD-10 - L20.9) Vaughn reprots history of atopic dermatitis diagnosed by [facility]. He reports long standing hsitroy of eczema on his hands. Approximately 12 months ago he was started on Dupixent every 2 weeks, which he feels has significantly improved his symptoms. However, he is now experiencing new rashes, primarily on his lower extremities. He describes the rash as erythematous and pruritic. Symptoms last > 3 weeks. He has been using topical clobetasol per dematology with mild noted benefit. No history of biopsy to rash on lower extremities. - Consider atopic dermatitis vs contact dermatitis vs other. - In regard to atopic dermatitis, continue Dupixent per dermatology. Continue SCIT as abvoe - The mainstay of treatment is repairing the skin barrier. Discussed the role of fillagrin in maintaining this barrier. In people with eczema, this barrier is less strong and more permeable than it should be. - Discussed the Soak, Smear, & Seal technique. Plan on bathing in tepid warm water for 20 minutes daily. Upon exiting tub, pat dry with soft cotton towel and apply prescribed topical medication to any areas of eczema. Then apply a thick emollient to ALL skin surface to lock in moisture. Suggested Vanicream line. - Keep nails short and avoid scratching. - See plan below. 04/09/2024 Other allergic rhinitis (ICD-10 - J30.89) Follow allergen avoidance, meds and consider SCIT as an adjunctive treatment to current regimen 05/21/2024 Atopic dermatitis, unspecified (ICD-10 - L20.9) Vaughn presents reporting history of atopic dermatitis diagnosed by [facility]. He reports long standing hsitroy of eczema on his hands. Approximately 12 months ago he was started on Dupixent every 2 weeks, which he feels has significantly improved his symptoms. However, he is now experiencing new rashes, primarily on his lower extremities. He describes the rash as erythematous and pruritic. Symptoms last > 3 weeks. He has been using topical clobetasol per dematology with mild noted benefit. No history of biopsy to rash on lower extremities. - Consider atopic dermatitis vs contact dermatitis vs other. - In regard to atopic dermatitis, continue Dupixent per dermatology. Highly consider SCIT, which Vaughn is interested in. - The mainstay of treatment is repairing the skin barrier. Discussed the role of fillagrin in maintaining this barrier. In people with eczema, this barrier is less strong and more permeable than it should be. - Discussed the Soak, Smear, & Seal technique. Plan on bathing in tepid warm water for 20 minutes daily. Upon exiting tub, pat dry with soft cotton towel and apply prescribed topical medication to any areas of eczema. Then apply a thick emollient to ALL skin surface to lock in moisture. Suggested Vanicream line. - Keep nails short and avoid scratching. - See plan below. - Follow-up as above to start SCIT 05/21/2024 Rash and other nonspecific skin eruption (ICD-10 - R21) As above, Vaughn presents with complaints of erythematous and pruritic patches on his lower extremities. These symptoms seemed to start after he started treatment with Dupixent. No history of biopsies per the patient, however no records to review. - Consider atopic dermatitis vs contact dermatitis vs other. - Due to pruritus will continue Zyrtec BID and Pepcid BID, which Vaughn feels has improved his symptoms. - Follow-up skin care regimen as outlined above. - Consider patch testing with Dormer AC-1000, which we discussed again today. Vaughn admits to poor compliance with skincare regimen, reports soaking in the bath tub approximately three times in the last 4 weeks. Discussed use all free and clear products. - Records requested from [facility]. Recommend obtaining a biopsy of persistent rash on Vaughn's calf. - Follow-up as above to start SCIT 04/09/2024 Other chronic allergic conjunctivitis (ICD-10 - H10.45) Given ocular signs and symptoms I encouraged allergy avoidance measures and meds as above. If symptoms persist, consider adding additional medications including intraocular antihistamine/mast cell stabilizer, PRN and consider SCIT as an adjunctive measure 06/19/2024 Rash and other nonspecific skin eruption (ICD-10 - R21) As above, Vaughn presents with complaints of erythematous and pruritic patches on his lower extremities. These symptoms seemed to start after he started treatment with Dupixent. No history of biopsies per the patient, however no records to review. - Consider atopic dermatitis vs contact dermatitis vs other. - Due to pruritus will continue Zyrtec BID and Pepcid BID, which Vaughn feels has improved his symptoms. - Follow-up skin care regimen as outlined above. - Consider patch testing with Dormer AC-1000, which we discussed again today. Vaughn admits to poor compliance with skincare regimen, reports soaking in the bath tub approximately three times in the last 4 weeks. Discussed use all free and clear products. - Records requested from [facility]. Recommend obtaining a biopsy of persistent rash on Vaughn's calf. - Follow-up as above to start SCIT 05/21/2024 Wheezing (ICD-10 - R06.2) Vaughn endorses occasional wheezing, which he notices primarily at night. He also reports occasional cough, no shortness of breath. Vaughn has history of sleep apnea, on CPAP managed by his PCP. Vaughn is a current smoker, smoking approximately 4 cigarettes per day for 20 years. He has never been hospitalized due to lower airway symptoms. - Spirometry obtained last visit that showed normal FVC, however TLC not measured, normal FEV1 and FEV%. Discussed BD challenge, however deferred last visit. Repeat spirometry today showed normal FEV1, FVC and FEV%, though variations in technique made interpretation difficult. - Due to symptoms and spirometry, will continue daily Trelegy. Plan to step-up to high dose. He is aware to rinse his mouth after use. - Continue ARCHANA as-needed. - Consider consult with pulmonology due to history of sleep apnea and smoking history, which we again discussed today. Vaughn plans to schedule a visit with pulmonary. - Follow-up as above 04/09/2024 Wheezing (ICD-10 - R06.2) Vaughn endorses occasional wheezing, which he notices primarily at night. He also reports occasional cough, no shortness of breath. Vaughn has history of sleep apnea, on CPAP managed by his PCP. Vaughn is a current smoker, smoking approximately 4 cigarettes per day for 20 years. He has never been hospitalized due to lower airway symptoms. - Spirometry obtained today that showed normal FVC, however TLC not measured, normal FEV1 and FEV%. Discussed BD challenge, however deferred today. - Due to symptoms and spirometry, will start trial of low-dose Trelegy. Samples provided and proper demonstration provided. He is aware to rinse his mouth after use. - Start ARCHANA as-needed, needs AAP next visit. - Consider consult with pulmonology due to history of sleep apnea and smoking history. - Follow-up in 4 weeks for repeat spirometry and further evaluation and management 06/19/2024 Wheezing (ICD-10 - R06.2) Vaughn endorses occasional wheezing, which he notices primarily at night. He also reports occasional cough, no shortness of breath. Vaughn has history of sleep apnea, on CPAP managed by his PCP. Vaughn is a current smoker, smoking approximately 4 cigarettes per day for 20 years. He has never been hospitalized due to lower airway symptoms. - Last spirometry obtained last visit that showed normal FVC, however TLC not measured, normal FEV1 and FEV%. Repeat spirometry showed normal FEV1, FVC and FEV%, though variations in technique made interpretation difficult. - Due to symptoms and spirometry, will continue daily hihh-dose Trelegy. He is aware to rinse his mouth after use. - Continue ARCHANA as-needed. - Consider consult with pulmonology due to history of sleep apnea and smoking history,Vaughn plans to schedule a visit with pulmonary. - Follow-up as above 05/21/2024 Elevated blood-pressure reading, without diagnosis of hypertension (ICD-10 - R03.0) BP elevated today without symptoms of urgency or emergency. Continue serial checks and follow-up with PCP 04/09/2024 Elevated blood-pressure reading, without diagnosis of hypertension (ICD-10 - R03.0) BP elevated today without symptoms of urgency or emergency. Continue serial checks and follow-up with PCP 06/19/2024 Elevated blood-pressure reading, without diagnosis of hypertension (ICD-10 - R03.0) BP elevated today without symptoms of urgency or emergency. Continue serial checks and follow-up with PCP 06/26/2024 Other 07/03/2024 Other 07/12/2024 Other 07/17/2024 Other 07/24/2024 Other 07/31/2024 Other 08/07/2024 Other Plan Of Treatment Next Appt Details Provider Name:Luis SmithJoanne Hu , 09/10/2024 07:40:00 AM, [address] [employer], [address] [place] [address], [address], Provider Name:Luis Edmondson Fritz , 09/17/2024 07:50:00 AM, [address] [employer], [address] [place] [address], [address], Provider Name:Luis SmithJoanne Hu , 09/25/2024 07:30:00 AM, [address] [employer], [address], [address], Insurance Providers Payer Name Payer Address Payer Phone Subscriber Number Group Number Insured Name Patient Relationship to Insured Coverage Start Date Coverage End Date A[employer] Choice II [address] [address] [place] [address] [id number] Vaughn Parker Self - patient is the insured Medical (General) History Medical History History ICD Code Allergic rhinitis due to pollen J30.1 Allergic rhinitis due to animal (cat) (d og) hair and dander J30.81 Other allergic rhinitis J30.89 Other chronic allergic conjunctivitis H1 0.45 Atopic dermatitis, unspecified L20.9
--- OUTSIDE RECORDS SUMMARY | 2024-08-31 04:48 | XMS_ITS ---
Author Organization [facility] Address [address] [place] [address] Care Team Providers Care Medical Records Specialist Name Role Phone Tracy De La Torre Primary Care Provider Allison Luciano [phone] REASON FOR VISIT Refill Medications Medication SIG (Take, Route, Frequency, Duration) Notes Start Date End Date Status Montelukast Sodium 10 MG 1 tablet Orally Once a day for 90 days Active Encounters Encounter Location Date Provider Diagnosis [facility] [address] [place] [address] 08/23/2024 Allison Holm Rash and other nonspecific skin eruption R21 Assessments Encounter Date Diagnosis (ICD Code) Assessment Notes Treatment Notes Treatment Clinical Notes Section Notes 08/23/2024 Rash and other nonspecific skin eruption (ICD-10 - R21) Plan Of Treatment Medication Medication Name Sig Start Date Stop Date Notes Montelukast Sodium 10 MG 1 tablet Orally Once a day for 90 days Next Appt Details Provider Name:Luis Hu , 09/10/2024 07:40:00 AM, [address] [employer], [address], [address], Provider Name:Luis Hu , 09/17/2024 07:50:00 AM, [address] [employer], [address], [place], [address], Provider Name:Luis Hu , 09/25/2024 07:30:00 AM, [employer], [address], [place], [address], Progress Notes * Vaughn PARKERDOB:1980 ( 44 yo M)Acc No.[id number]:08/23/2024 Patient:?Vaughn PARKER :1980???Age:44 Y???Sex:Male Address: [address], [place], [address] * Refills? Refill Montelukast Sodium Tablet, 10 MG, Orally, 90, 1 tablet, Once a day, 90 days, Refills=0 * true * Date:? Generated for Yessy carvalho/Paola/Octavianoitting on:?08/31/2024 04:47 AM SUPERVISOR PACKING ROOM
--- OUTSIDE RECORDS SUMMARY | 2024-08-31 04:48 | XMS_ITS | Encounter Summary ---
Author Organization [facility] Healthcare Address [address] [place] [address] Care Team Providers Care Development Lead Name Role Phone Tracy De La Torre NP Primary Care Provider [phone] Azra Pinon MD Unavailable [phone] Kathrine Ren MD Unavailable [phone] Reason for Visit * Reason Onset Date Comments virtual care appointment 08/23/2024 Encounter Details Date Type Department Care Team (Late st Contact Info) Description 08/23/2024 Telephone [facility] Medical Group Virtual Care [address] [place] [address] Mary Aguirre virtual care appointment Social History Tobacco Use Types Packs/Day Years [...] on file 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 I spoke to Vaughn, he will go to the . UNICATIONS DEPARTMENT HEAD documented in this encounter Plan of Treatment Not on file documented as of this encounter Visit Diagnoses Not on filedocumented in this encounter Care Teams Development Lead Relationship Specialty Start Date End Date Tracy De La Torre NP [address] [place], [place] [phone] PCP - General Family Medicine 05/16/24 Azra Pinon MD [address] [place], [place] [id number] Referring Physician Dermatology 05/16/24 Kathrine Ren MD [address] [place] [address] Consulting Physician Urology 05/16/24 Allison Holm [address] [facility] [address] [place] [address] Senior Oracle Database Administrator Dermatology 05/16/24 documented as of this encounter
--- OUTSIDE RECORDS SUMMARY | 2024-08-31 04:48 | XMS_ITS ---
Author Organization [facility] Address [address] [place] [address] Care Team Providers Care Science Technician Name Role Phone Tracy De La Torre Primary Care Provider Allison Luciano Unavailable [phone] Luis Hu Unavailable [phone] REASON FOR VISIT SCIT - Traditional Schedule Allergy Immunotherapy (Week ) Medications Medication SIG (Take, Route, Frequency, Duration) Notes Start Date End Date Status Dupixent Active Vanicream - as directed Externally Active Nasal Wash - as directed Nasally Active EPINEPHrine 0.3 MG/0.3ML as directed Inj ection as directed for 30 days 05/31/2024 Active SIT (Cluster) variable - see record per schedule subcutaneous per schedule for 999 06/19/2024 Active Montelukast Sodium 10 MG 1 tablet Orally Once a day for 90 days Active Famotidine 20 MG 1 tablet Orally Twic e a day for 30 days Active Cetirizine HCl 10 MG 1 tablet Orally Twi ce a day for 30 days Active Trelegy Ellipta 200-62.5-25 MCG/ACT 1 puff Inhalation Once a day for 30 days Active EPINEPHrine 0.3 MG/0.3ML as directed Inj ection as needed for 30 days 06/19/2024 Active Albuterol Sulfate HFA 108 (90 Base) MCG/ACT 2 puffs as needed Inhalation every 4 hrs for 30 days Active Encounters Encounter Location Date Provider Diagnosis [facility] [address] [place] [address] 08/13/2024 Luis Hu Allergic rhinitis du e to pollen J30.1 ; Other allergic rhinitis J30.89 ; Allergic rhinitis due to animal (cat) (dog) hair and dander J30.81 and Other chronic allergic conjunctivitis H10.45 Assessments Encounter Date Diagnosis (ICD Code) Assessment Notes Treatment Notes Treatment Clinical Notes Section Notes 08/13/2024 Allergic rhinitis due to pollen (ICD-10 - J30.1) 08/13/2024 Other allergic rhinitis (ICD-10 - J30.89) 08/13/2024 Allergic rhinitis due to animal (cat) (dog) hair and dander (ICD-10 - J30.81) 08/13/2024 Other chronic allergic conjunctivitis (ICD-10 - H10.45) Plan Of Treatment Next Appt Details Follow Up: As scheduled, Marlena son: Provider Name:Luis Hu , 09/10/2024 07:40:00 AM, [address] [employer], [address], [address], Provider Name:Luis Hu , 09/17/2024 07:50:00 AM, [employer], [address], [address], Provider Name:Luis Hu , 09/25/2024 07:30:00 AM, [employer], [address], [address], Progress Notes * Vaughn PARKERDOB:1980 ( 44 yo M)Acc No.[id number]:08/13/2024 SCIT-Aeroallergen Patient:?Vaughn PARKER Provider:?Luis Hu MD :1980???Age:44 Y???Sex:Male Ramo e:08/13/2024 Address:[address], [place], [place] Pcp:Tracy De La Torre Subjective: * [...] - H10.45??? Plan: * Treatment: * Procedure Codes:?74004 IMMUN OTHERAPY INJECTIONS * Preventive Medicine:? ??Counseling:?Exercise?Avoid heavy lifting on days of allergy immunotherapy.?Medication instruction:?Injectable epinephrine education and instruction w/ discussion of signs and symptoms of anaphylaxis and reasons to seek urgent or emergent care, Watch for side effects of prescribed medications.?Education:?Able to return demonstration of self-injectable epinephrine.? * Follow Up:?As scheduled * Billing Information: * Visit Code:? * Procedure Codes:? 00978 IMMUNOTHERAPY INJECTIONS. * ESSOR OF MEDICINE Sign off status: Completed true * Provider:?Luis Hu MD Date:?08/13 Generated for Yessy carvalho/Paola/Kathy on:?08/31/2024 04:48 AM PROFESSOR OF MEDICINE History and Physical Notes * HPI (History [...]
--- OUTSIDE RECORDS SUMMARY | 2024-08-31 04:48 | XMS_ITS | Referral Summary ---
Author Organization [address] Address [facility] [place] [address] Care Team Providers Care Nremt Name Role Phone Tracy De La Torre NP Primary Care Provider [phone] Azra Pinon MD Unavailable [phone] Kathrine Ren MD Unavailable [phone] Encounters Date Type Department Care Team Description 08/23/2024 Telephone [facility] Medical Group Virtual Care [address] [place] [address] Mary Aguirre virtual care appointment 08/23/2024 Patient Self-Triage [facility] HealthCare/ Physicians [facility] [place] [address] Mychart, Generic Provider from Last 3 Months Allergies Active Allergy Reactions Criticality Noted Date Comments Iodine Shortness of breath High 05/16/2024 Shellfish Shortness of breath High 05/16/2024 Medications albuterol HFA (PROVENTIL HFA,VENTOLIN HFA,PROAIR HFA) 90 mcg/actuation inhaler Inhale 2 puffs every 4 (four) hours as needed 04/09/20 24 Active cetirizine (ZyrTEC) 10 mg tablet Take 1 tablet (10 mg total) by mouth daily 04/09/20 24 Active Dupixent Pen pen injector Inject 2 mL (300 mg total) under the skin every 14 (fourteen) days 05/05/20 24 Active clobetasoL (TEMOVATE) 0.05 % ointment 2 (two) times a day 03/05/20 24 Active pimecrolimus (ELIDEL) 1 % cream Apply topically 2 (two) times a day 03/08/20 24 Active Opzelura 1.5 % cream 05/03/20 Active Xyosted 75 mg/0.5 mL auto-injector 05/16/20 Active montelukast (SINGULAIR) 10 mg tablet Take 1 tablet (10 mg total) by mouth nightly 04/09/20 Active famotidine (PEPCID) 20 mg tablet every 12 hours 04/09/20 Active semaglutide (Wegovy) 0.25 mg/0.5 mL auto-injector INJECT 0.25MG UNDER THE SKIN EVERY 7 DAYS 2 mL 1 08/06/20 24 Active semaglutide (Wegovy) 0.25 mg/0.5 mL auto-injector Inject 0.5 mL (0.25 mg total) under the skin every 7 days 3 mL 1 05/21/20 24 024 Discontinued Active Problems Problem Noted Date Diagnosed Date Atopic dermatitis 05/16/2024 Testosterone deficiency Assessment & Plan (05/16/2024 4:29 PM CDT): Patient continues Xyosted per Dr Ren (Urology) Resolved Problems Problem Noted Date Diagnosed Date Resolved Date Psoriasis 05/16/2024 Immunizations Name Administration Dates Next Due Influenza, Quadrivalent, Emily l Culture-based MDCK, Preservative Free, Antibiotic Free, Intramuscular 08/12/2021 Influenza, Unspecified 08/22/2023(Deferr ed: Patient Refused),08/22/2022(Deferred: Patient Refused) Social History Tobacco Use Types Packs/Day Years [...] on file 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 Gender Identity Not on file Sexual Orientation Not on file Last Filed Vital Signs Vital Sign Reading Time Taken Comments Blood Pressure 108/78 05/16/2024 2:59 PM CDT Pulse 67 05/16/2024 2:59 PM CDT Temperature 37.2 ??C (98.9 ??F) 05/16/2024 2:59 PM CD T Respiratory Rate 20 05/16/2024 2:59 PM CDT Oxygen Saturation 95% 05/16/2024 2:59 PM CDT Inhaled Oxygen Concentration - - Weight 122 kg (269 lb) 05/16/2024 2:59 PM CDT Height 188 cm (6' 2 ) 05/16/2024 2:59 PM CDT Body Mass Index 34.54 05/16/2024 2:59 PM CDT Plan of Treatment Not on file Procedures Procedure Name Priority Date/Time Associated Diagnosis Comments HEPATITIS C ANTIBODY Routine 05/16/2024 12:00 PM CDT Encounter for hepatitis C screening test for low risk patient from Last 3 Months or Most Recently Relevant to Health Maintenance Results * Hepatitis C antibody Blood (05/16/2024 12:00 PM CDT) Hep C Ab Nonreactive Nonreactive Comment: Interpretive Data Nonreactive: Antibodies to HCV not detected. Does NOT exclude the possibility of recent exposure to HCV. Equivocal: Equivocal for HCV antibodies. Supplemental molecular testing will be automatically performed to determine infection status in accordance with current CDC screening recommendations. ?? Reactive: Positive for HCV antibodies. ??This may represent current or past HCV infection. Supplemental molecular testing will be automatically performed to determine ??current infection status in accordance with current CDC screening recommendations. Interpretive data was last revised on 2019. Blood 05/16/2024 12:0 0 PM CDT 05/16/2024 8:49 PM CDT Tracy De La Torre NP LAB MICROBIOLOGY - GENERAL ORDER FORREST Final Result [id number] Department [place] [address] from Last 3 Months or Most Recently Relevant to Health Maintenance Insurance [facility] HMO Care Teams Nremt Relationship Specialty Start Date End Date Tracy De La Torre NP [address] [facility] [address] [place] [address] PCP - General Family Medicine 05/16/24 Azra Pinon MD [address] [place] [address] Referring Physician Dermatology 05/16/24 Kathrine Ren MD [address] [place] [address] Consulting Physician Urology 05/16/24 Allison Holm [address] [facility] [address] [place] [address] Commercial Lines Assistant Dermatology 05/16/24
--- OUTSIDE RECORDS SUMMARY | 2024-08-31 04:48 | XMS_ITS | Encounter Summary ---
Author Organization [facility] Address [address] [place] [address] Care Team Providers Care Smelter Liner Name Role Phone Tracy De La Torre NP Primary Care Provider [phone] Azra Pinon MD Unavailable [phone] Kathrine Ren MD Unavailable [phone] Reason for Visit * Reason Onset Date Comments PA for Wegovy 05/23/2024 Encounter Details Date Type Department Care Team (Late st Contact Info) Description 05/23/2024 Telephone [facility] Primary Care at [address] [address] Tracy De La Torre NP [address] [place] [address] [address] [place] [address] PA for Wegovy Social History Tobacco Use Types Packs/Day Years [...] on file 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 Wait for Determination [facility]. documented in this encounter Plan of Treatment Not on file documented as of this encounter Visit Diagnoses Not on filedocumented in this encounter Care Teams Smelter Liner Relationship Specialty Start Date End Date Tracy De La Torre NP [address] [place] [address] PCP - General Family Medicine 05/16/24 Azra Pinon MD [address] [place] [address] Referring Physician Dermatology 05/16/24 Kathrine Ren MD [address] [place], [place] [address] Consulting Physician Urology 05/16/24 Allison Holm [address] [facility] [address] [place] [address] Cadastral Surveyor Dermatology 05/16/24 documented as of this encounter
--- OUTSIDE RECORDS SUMMARY | 2024-08-31 04:48 | XMS_ITS | Clinical Summary ---
Author Organization [address] Address [address] [place] [address] Care Team Providers Care Radiology Ct Technologist Name Role Phone Tracy De La Torre NP Primary Care Provider [phone] Azra Pinon MD Unavailable [phone] Kathrine Ren MD Unavailable [phone] Allergies Active Allergy Reactions Criticality Noted Date [...] 24 Active Opzelura 1.5 % cream 05/03/20 24 Active Xyosted 75 mg/0.5 mL auto-injector 05/16/20 24 Active montelukast (SINGULAIR) 10 mg tablet Take 1 tablet (10 mg total) by mouth nightly 04/09/20 24 Active famotidine (PEPCID) 20 mg tablet every 12 hours 04/09/20 24 Active semaglutide (Wegovy) 0.25 mg/0.5 mL [...] Date Diagnosed Date Resolved Date Psoriasis 05/16/2024 Encounters Date Type Department Care Team Description 08/23/2024 Telephone [facility] Medical Group Virtual Care [address] [place] [address] Mayr Aguirre virtual care appointment 08/23/2024 Patient Self-Triage [facility] HealthCare/ Physicians [address] [place] [address] Mychart, Generic Provider from Last 3 Months Immunizations Name Administration Dates Next Due Influenza, Quadrivalent, Emily l Culture-based MDCK, Preservative Free, Antibiotic Free, Intramuscular 08/12/2021 Influenza, Unspecified 08/22/2023(Deferr ed: Patient Refused),08/22/2022(Deferred: Patient Refused) Surgical History Surgery Date Site/Laterality Comments HAND SURGERY TUMOR REMOVAL in mouth WISDOM TOOTH EXTRACTION Medical History Medical History Date Comments Seasonal allergies Fatty liver Psoriasis Testosterone deficiency Family History Medical History Relation Name Comments Coronary artery disease Father Diabetes type II Father Prostate cancer Maternal Grandfather Prostate cancer Paternal Grandfather Relation Name Status Comments Father Alive Maternal Grandfather Paternal Grandfather Social History Tobacco Use Types Packs/Day Years [...] on file 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 Gender Identity Not on file Sexual Orientation Not on file Obstetrics History Last Filed Vital Signs Vital Sign Reading [...] 05/16/2024 2:59 PM CDT Plan of Treatment Health Maintenance Due Date Last Done Comments DTaP/Tdap/Td Vaccine (1 - Tdap) 1992 Varicella Vaccines (1 of 2 - 13+ 2-dose series) 1994 Hepatitis B Screening 1999 Covid-19 Vaccine (2023- season) 2024 03/07/2022, 08/12/2021, 12/12/2020, Additional history exists Influenza Vaccine (#1) 2024 08/12/2021 Depression Screening 05/16/2025 05/16/2024 Regular Well Visit/Exam 18-64 05/16/2025 05/16/2024 Hepatitis C Screening Completed 05/16/2024 HPV Vaccines Aged Out No longer eligi ble based on patient's age to complete this topic Pneumococcal vaccine <65 Aged Out No longer eligible based on patient's age to complete this topic Procedures Procedure Name Priority Date/Time Associated Diagnosis [...] - GENERAL ORDER FORREST Final Result [id number] Department [place] [address] from Last 3 Months or Most Recently Relevant to Health Maintenance Insurance [facility] Care Teams Radiology Ct Technologist Relationship Specialty Start Date End Date Tracy De La Torre NP [address] [facility] [address] [place] [address] PCP - General Family Medicine 05/16/24 Azra Pinon MD [address] [place] [address] Referring Physician Dermatology 05/16/24 Kathrine Ren MD [address] [facility] [address] [place] [address] Consulting Physician Urology 05/16/24 Allison Holm [address]22 [facility] [address] [place] [address] Finishing Department Supervisor Dermatology 05/16/24
--- OUTSIDE RECORDS SUMMARY | 2024-08-31 04:49 | XMS_ITS | Encounter Summary ---
Author Organization [facility] Healthcare Address [address] [place] [address] Care Team Providers Care Package Line Relief Operator Name Role Phone Tracy De La Torre NP Primary Care Provider [phone] Azra Pinon MD Unavailable [phone] Kathrine Ren MD Unavailable [phone] Encounter Details Date Type Department Care Team (Late st Contact Info) Description 05/16/2024 3:45 PM CDT Lab [facility] Medical Group Outpatient Lab at [address] [address] Screening for deficiency anemia (Primary Dx) Social History Tobacco Use Types Packs/Day Years [...] on file 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 Gender Identity Not on file Sexual Orientation Not on file documented as of this encounter Plan of Treatment Not on file documented as of this encounter Visit Diagnoses Diagnosis Screening for deficiency anemia- Primary Screening for other and unspecified deficiency anemia documented in this encounter Care Teams Package Line Relief Operator Relationship Specialty Start Date End Date Tracy De La Torre NP [address] [place] [address] PCP - General Family Medicine 05/16/24 Azra Pinon MD [address] [place] [address] Referring Physician Dermatology 05/16/24 Kathrine Ren MD [address] [place], [place] [address] Consulting Physician Urology 05/16/24 Allison Holm 20[address] [facility] [address] [place] [address] Merchant Tailor Dermatology 05/16/24 documented as of this encounter
--- OUTSIDE RECORDS SUMMARY | 2024-08-31 04:49 | XMS_ITS | Encounter Summary ---
Author Organization [facility] Healthcare Address [address] [place] [address] Care Team Providers Care Gasateria Attendant Name Role Phone Trcay De La Torre NP Primary Care Provider [phone] Azra Pinon MD Unavailable Kathrine Ren MD Unavailable [phone] Encounter Details Date Type Department Care Team (Latest Contact Info) Description 05/16/2024 8:47 PM CDT - 05/16/2024 11:59 PM CDT Hospital Encounter [address] [address] Encounter for hepatitis C screening test for low risk patient; Encounter for screening examination for intermediate hyperglycemia and diabetes mellitus; Thyroid disorder screen; Lipid screening; Screening for endocrine, nutritional, metabolic and immunity disorder; Screening for deficiency anemia Discharge Disposition: Discharge to home or self care Social History Tobacco Use Types Packs/Day Years [...] on file Legal Sex Male 3:02 PM [employer] Gender Identity Not on file Sexual Orientation Not on file documented as of this encounter Medications at Time of Discharge albuterol HFA (PROVENTIL HFA,VENTOLIN HFA,PROAIR HFA) 90 mcg/actuation inhaler Inhale 2 puffs every 4 (four) hours as needed 04/09/2024 cetirizine (ZyrTEC) 10 mg tablet Take 1 tablet (10 mg total) by mouth daily 04/09/2024 clobetasoL (TEMOVATE) 0.05 % ointment 2 (two) times a day 03/05/2024 Dupixent Pen pen injector Inject 2 mL (300 mg total) under the skin every 14 (fourteen) days 05/05/2024 famotidine (PEPCID) 20 mg tablet every 12 hours 04/09/2024 montelukast (SINGULAIR) 10 mg tablet Take 1 tablet (10 mg total) by mouth nightly 04/09/2024 Opzelura 1.5 % cream 05/03/2024 pimecrolimus (ELIDEL) 1 % cream Apply topically 2 (two) times a day 03/08/2024 Xyosted 75 mg/0.5 mL auto-injector 05/16/2024 documented as of this encounter Discharge Disposition Disposition Code Departure Means Destination Discharge to home or self care documented in this encounter Plan of Treatment Not on file documented as of this encounter Procedures Procedure Name Priority Date/Time Associated Diagnosis Comments EGFR Routine 05/16/2024 12:00 PM CDT Screening for endocrine, nutritional, metabolic and immunity disorder DIFFERENTIAL AUTO Routine 05/16/2024 12: 00 PM CDT Screening for deficiency anemia THYROID FUNCTION CASCADE Routine 05/16/2024 12:00 PM CDT Thyroid disorder screen CBC WITH AUTO DIFFERENTIAL Routine 05/16/2024 12:00 PM CDT Screening for deficiency anemia HEPATITIS C ANTIBODY Routine 05/16/2024 12:00 PM CDT Encounter for hepatitis C screening test for low risk patient HEMOGLOBIN A1C Routine 05/16/2024 12:00 PM CDT Encounter for screening examination for intermediate hyperglycemia and diabetes mellitus LIPID PANEL Routine 05/16/2024 12:00 PM CDT Lipid screening COMPREHENSIVE METABOLIC PANEL Routine 05/16/2024 12:00 PM CDT Screening for endocrine, nutritional, metabolic and immunity disorder documented in this encounter Results * eGFR (05/16/2024 12:00 PM CDT) Pathologist [facility] [place] eGFR >90 >=60 mL/min/1. 73 m2 Comment: Interpretive Data Reference Interval Normal ?>/= 90 mL/min/1.73m2 Mildly decreased* ? 60 - 89 mL/min/1.73m2 Mildly to moderately decreased ?45 - 59 mL/min/1.73m2 Moderately to severely decreased ??30 - 44 mL/min/1.73m2 Severely decreased ?15 - 29 mL/min/1.73m2 Kidney Failure ?< 15 ??mL/min/1.73m2 *Relative to young adult level Estimated glomerular filtration rate is determined by the 2020 CKD-EPI equation recommended by the National Kidney Foundation (A Unifying Approach to GFR Estimation: Recommendations of the NKF-ASK Task Force on Reassessing the Inclusion of Race in Diagnosing Kidney Disease, JASN 202). The CKD-EPI equation should not be used for patients with unstable renal function and has not been validated in children and those over 70. Current interpretive data was last reviewed 2021. Blood 05/16/2024 12:0 0 PM CDT 05/16/2024 9:01 PM CDT us Tracy De La Torre NP LAB BLOOD ORDERABLES Final Resul t [facility] [address] Department [place] [address] * (ABNORMAL) Differential, auto (05/16/2024 12:00 PM CDT) [facility] Neutrophil abs 5.6 1.5 - 6.5 K/cumm Imm gran abs 0.0 0.0 - 0.1 K/cumm [facility] Lymphocyte abs 3.4(H) 0.8 - 3.3 K/cumm [facility] Monocyte abs 1.0(H) 0.2 - 0.8 K/cumm [facility] Eosinophil abs 0.8(H) 0.0 - 0.5 K/cumm [facility] Basophil abs 0.1 0.0 - 0.1 K/cumm [facility] Neutrophil pct 51.6 % [facility] Comment: Interpretive Data Percent cell count reference ranges are not reported, since discordance with absolute values may lead to misinterpretation of CBC data. Current Interpretive Data was last revised on 2017. Imm gran pct 0.4 % [facility] Comment: Interpretive Data Percent cell count reference ranges are not reported, since discordance with absolute values may lead to misinterpretation of CBC data. Current Interpretive Data was last revised on 2017. Lymphocyte pct 31.0 % [facility] Comment: Interpretive Data Percent cell count reference ranges are not reported, since discordance with absolute values may lead to misinterpretation of CBC data. Current Interpretive Data was last revised on 2017. Monocyte pct 8.9 % [facility] Comment: Interpretive Data Percent cell count reference ranges are not reported, since discordance with absolute values may lead to misinterpretation of CBC data. Current Interpretive Data was last revised on 2017. Eosinophil pct 7.0 % [facility] Comment: Interpretive Data Percent cell count reference ranges are not reported, since discordance with absolute values may lead to misinterpretation of CBC data. Current Interpretive Data was last revised on 2017. Basophil pct 1.1 % [facility] Comment: Interpretive Data Percent cell count reference ranges are not reported, since discordance with absolute values may lead to misinterpretation of CBC data. Current Interpretive Data was last revised on 2017. Blood 05/16/2024 12:0 0 PM CDT 05/16/2024 8:49 PM CDT us Tracy De La Torre NP LAB BLOOD ORDERABLES Final Resul t [facility] [address] Department [place] [address] * (ABNORMAL) CBC with auto differential (05/16/2024 12:00 PM CDT) Pathologist [facility] [place] WBC 10.8(H) 3.8 - 9.9 K/cumm Hgb 17.3 13.0 - 17.5 g/dL [facility] Hct 51.2(H) 38.9 - 50.3 % [facility] Plt 269 150 - 400 K/cumm [facility] MPV 9.9 9.1 - 12.3 fL [facility] RBC 5.61 4.30 - 5.80 M/cumm [facility] MCV 91.3 81.3 - 96.4 fL [facility] MCH 30.8 27.1 - 33.3 pg [facility] MCHC 33.8 32.3 - 35.7 g/dL [facility] RDW CV 12.5 11.1 - 14.9 % [facility] RDW SD 41.2 35.7 - 48.1 fL [facility] NRBC abs 0.00 0.00 - 0.01 K/cumm [facility] Blood 05/16/2024 12:0 0 PM CDT 05/16/2024 8:49 PM CDT Tracy De La Torre NP LAB BLOOD ORDERABLES Final Resul t [facility] [address] Department [place] [address] * (ABNORMAL) Comprehensive metabolic panel (05/16/2024 12:00 PM CDT) Pathologist [facility] [place] Sodium 138 135 - 145 mmol/L Potassium, pl 3.9 3.3 - 4.9 mmol/L [facility] Chloride 102 97 - 110 mmol/L [facility] CO2 24 22 - 32 mmol/L [facility] Anion gap 12 2 - 15 mmol/L [facility] BUN 14 6 - 25 mg/dL [facility] Creatinine 0.89 0.80 - 1.30 mg/dL [facility] Glucose 88 70 - 199 mg/dL [facility] Comment: Interpretive Data Fasting glucose >/= 126 mg/dl is diagnostic for diabetes. ?? Fasting is defined as no caloric intake for at least 8 hours. Fasting glucose between 100 mg/dl to 125 mg/dl is diagnostic of prediabetes. In a patient with classic symptoms of hyperglycemia or hyperglycemic crisis, a random glucose >/= 200 mg/dl is diagnostic for diabetes. In the absence of unequivocal hyperglycemia, results should be confirmed by repeat testing. The classification and Diagnosis of Diabetes Diabetes Care 202; 46: S19-S40. Current interpretive data was last revised 2022. Calcium 9.4 8.5 - 10.3 mg/dL [facility] Bilirubin, total 0.3 0.1 - 1.2 mg/dL [facility] Protein, pl 6.9 6.5 - 8.5 g/dL [facility] Albumin 4.3 3.5 - 5.0 g/dL [facility] Alk phos 72 40 - 130 Units/L [facility] ALT 63(H) 7 - 55 Units/L [facility] AST 34 10 - 50 Units/L [facility] Blood 05/16/2024 12:0 0 PM CDT 05/16/2024 8:49 PM CDT us Tracy De La Torre NP LAB BLOOD ORDERABLES Final Resul t [facility] [address] Department [place] [address] * (ABNORMAL) Lipid panel (05/16/2024 12:00 PM CDT) [facility] Cholesterol 241(H) 30 - 199 mg/dL Comment: Interpretive Data Ages < or = 19 years ??Acceptable: ? <170 mg/dL ??Borderline high: ??170-199 mg/dL ??High: ? >or= 200 mg/dL Ages > or = 20 years ??Desirable: ?<200 mg/dL ??Borderline high: ??200-239 mg/dL ??High: ? >or= 240 mg/dL Literature References: 1. Expert Panel on Integrated Guidelines for Cardiovascular Health and Risk Reduction in Children and Adolescents. Pediatrics 2011;128:S213 2. NCEP Expert Panel. Circulation 2004;110:227 Current Interpretive Data was last revised on 2018. Triglycerides 299(H) <=149 mg/dL [facility] Comment: Interpretive Data Ages < or = 9 years ??Acceptable: ? <75 mg/dL ??Borderline high: ??75-99 mg/dL ??High: ? >or= 100 mg/dL Ages 10 to 20 years ??Acceptable: ? <90 mg/dL ??Borderline high: ??90-129 mg/dL ??High: ? >or= 130 mg/dL Ages > or = 20 years ??Desirable: ?<150 mg/dL ??Borderline high: ??150-199 mg/dL ??High: ? 200-499 mg/dL ?Very high: ?? >or= 499 mg/dL Literature References: 1. Expert Panel on Integrated Guidelines for Cardiovascular Health and Risk Reduction in Children and Adolescents. Pediatrics 2011;128:S213 2. NCEP Expert Panel. Circulation 2004;110:227 Current Interpretive Data was last revised on 2018. HDL 31(L) >=40 mg/dL [facility] Comment: Interpretive Data Ages < or = 19 years ??Acceptable: ? >45 mg/dL ??Borderline low: ?? 40-45 mg/dL ??Low: ? <40 mg/dL Ages > or = 20 years ??Desirable: ?>or= 60 mg/dL ??Low: ? <40 mg/dL Literature References: 1. Expert Panel on Integrated Guidelines for Cardiovascular Health and Risk Reduction in Children and Adolescents. Pediatrics 2011;128:S213 2. NCEP Expert Panel. Circulation 2004;110:227 Current Interpretive Data was last revised on 2018. LDL, calculated 154(H) <=129 mg/dL [facility] Comment: Interpretive Data Ages < or = 19 years ??Acceptable: ? <110 mg/dL ??Borderline high: ??110-129 mg/dL ??High: ?>or= 130 mg/dL Ages > or = 20 years ??Optimal: ? <100 mg/dL ??Near optimal: ?100-129 mg/dL ??Borderline high: ?? 130-159 mg/dL ??High: ?>160 mg/dL Calculated using the Rustam LDL-C estimating equation. This equation was implemented on 2024. Prior to this date LDL-C was estimated using the Friedewald equation. Literature References: 1. Expert Panel on Integrated Guidelines for Cardiovascular Health and Risk Reduction in Children and Adolescents. Pediatrics 2011;128:S213 2. NCEP Expert Panel. Circulation 2004;110:227 3. Rustam Ray et al. AUGUST Cardiol. 2020 December 20;5(5):540-548. doi: 10.1001/jamacardio.2020.0013 Current Interpretive Data was last revised on 2024. Non-HDL Cholesterol 210 mg/dL [facility] Comment: Interpretive Data Ages < or = 19 years ??Acceptable: ?<120 mg/dL ??Borderline high: ??120-144 mg/dL ??High: ?>145 mg/dL Ages > or = 20 years ??When triglycerides are >200 mg/dL, Non-HDL cholesterol is a secondary target of ? therapy with treatment goals that are 30 mg/dL greater than the LDL cholesterol target. ? Literature References: 1. Expert Panel on Integrated Guidelines for Cardiovascular Health and Risk Reduction in Children and Adolescents. Pediatrics 2011;128:S213 2. NCEP Expert Panel. Circulation 2004;110:227 Current Interpretive Data was last revised on 2018. Chol/HDL ratio 8 [facility] Blood 05/16/2024 12:0 0 PM CDT 05/16/2024 8:49 PM CDT us Tracy De La Torre RANGE EXAMINER LAB BLOOD ORDERABLES Final Resul t Performing Organization Address City/[facility] Co de Phone Number [facility] [address] [place] [address] * Thyroid Function Christian (05/16/2024 12:00 PM CDT) [facility] TSH 2.27 0.30 - 4.20 mcIUnit/mL Blood 05/16/2024 12:0 0 PM CDT 05/16/2024 8:49 PM CDT Tracy De La Torre NP LAB BLOOD ORDERABLES Final Resul t Performing Organization Address [facility] de Phone Number [facility] [address] [place] [address] * (ABNORMAL) Hemoglobin A1c (05/16/2024 12:00 PM CDT) [facility] Hgb A1C 5.9(H) 4.0 - 5.6 % Estimated Average Glucose 123 mg/dL [facility] Comment: The ADA recommends reporting an estimated Average Glucose (eAG) with all Hemoglobin A1c results using the equation derived from a study of 507 normal and diabetic adults. ??Minority populations were underrepresented and children were not included. ?? (Diabetes Care 31:7658-9616, 2008). ??The eAG is not equivalent to a fasting glucose. Blood 05/16/2024 12:0 0 PM CDT 05/16/2024 8:49 PM CDT us Tracy De La Torre RANGE EXAMINER LAB BLOOD ORDERABLES Final Resul t Performing Organization Address [facility] de Phone Number [facility] [address] [place] [address] * Hepatitis C antibody Blood (05/16/2024 12:00 PM CDT) [facility] Hep C Ab Nonreactive Nonreactive Comment: Interpretive [...] 0 PM CDT 05/16/2024 8:49 PM CDT us Tracy De La Torre NP LAB MICROBIOLOGY - GENERAL ORDER FORREST Final Result [facility] [address] [facility] [place] [address] documented in this encounter Visit Diagnoses Diagnosis Encounter for hepatitis C screening test for low risk patient Encounter for screening examination for intermediate hyperglycemia and diabetes mellitus Thyroid disorder screen Screening for thyroid disorder Lipid screening Screening for lipoid disorders Screening for endocrine, nutritional, metabolic and immunity disorder Screening for other and unspecified endocrine, nutritional, metabolic, and immunity disorders Screening for deficiency anemia Screening for other and unspecified deficiency anemia documented in this encounter Care Teams Gasateria Attendant Relationship Specialty Start Date End Date Tracy De La Torre NP [address] [place], [place] [id number] PCP - General Family Medicine 05/16/24 Azra Pinon MD [address] [place] [address] Referring Physician Dermatology 05/16/24 Kathrine Ren MD [address] [place] [address] Consulting Physician Urology 05/16/24 Allison Holm [address] [facility] [address] [place] [address] Producer Director Dermatology 05/16/24 documented as of this encounter
--- OUTSIDE RECORDS SUMMARY | 2024-08-31 04:49 | XMS_ITS | Encounter Summary ---
Author Organization [facility] Healthcare Address [address] [place] [address] Care Team Providers Care Speech/Language Therapist Name Role Phone Tracy De La Torre NP Primary Care Provider [phone] Azra Pinon MD Unavailable [phone] Kathrine Ren MD Unavailable [phone] Reason for Visit * Reason Comments New Patient Encounter Details Date Type Department Care Team (Latest Contact Info) Description 05/16/2024 3:00 PM CDT Office Visit [facility] Medical Group Primary Care at [address] [address] Tracy De La Torre NP [address] [place] [address] [address] [place] [address] Annual physical exam (Primary Dx); Testosterone deficiency; Screening for deficiency anemia; Screening for endocrine, nutritional, metabolic and immunity disorder; Lipid screening; Thyroid disorder screen; Encounter for screening examination for intermediate hyperglycemia and diabetes mellitus; Encounter for hepatitis C screening test for low risk patient; Class 1 obesity due to excess calories without serious comorbidity with body mass index (BMI) of 34.0 to 34.9 in adult Social History Tobacco Use Types Packs/Day Years [...] on file 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 SUBJECTIVE: Vaughn Parker is a 44 y.o. male presenting for his annual checkup. New patient here to establish care. Patient here today to discuss chronic conditions and discuss labs/have labs ordered. Current Outpatient Medications Medication Sig Dispense Refill albuterol HFA (PROVENTIL HFA,VENTOLIN HFA,PROAIR HFA) 90 mcg/actuation inhaler Inhale 2 puffs every4 (four) hours as needed cetirizine (ZyrTEC) 10 mg tablet Take 1 tablet (10 mg total) by mouth daily clobetasoL (TEMOVATE) 0.05 % ointment 2 (two) times a day Dupixent Pen pen injector Inject 2 mL (300 mg total) under the skin every 14 (fourteen) days famotidine (PEPCID) 20 mg tablet every 12 hours montelukast (SINGULAIR) 10 mg tablet Take 1 tablet (10 mg total) by mouth nightly Opzelura 1.5 % cream pimecrolimus (ELIDEL) 1 % cream Apply topically 2 (two) times a day Xyosted 75 mg/0.5 mL auto-injector No current facility-administered medications for this visit. Allergies: Iodine and Shellfish ROS: Feeling well. No dyspnea or chest pain on exertion. No abdominal pain, change in bowel habits,black or bloody stools. No urinary tract or prostatic symptoms. No neurological complaints. OBJECTIVE: The patient appears well, alert, oriented x 3, in no distress. BP 108/78 (BP Location: Right arm, Patient Position: Sitting) Pulse 67 Temp 37.2 ??C (98.9 ??F)(Temporal) Resp 20 Ht 188 cm (6' 2 ) Wt 122 kg (269 lb) SpO2 95% BMI 34.54 kg/m?? Physical Exam Constitutional: Appearance: Normal appearance. HENT: Head: Normocephalic. Right Ear: External ear normal. Left Ear: External ear normal. Eyes: Extraocular Movements: Extraocular movements intact. Cardiovascular: Rate and Rhythm: Normal rate. Heart sounds: Normal heart sounds. Pulmonary: Effort: Pulmonary effort is normal. Breath sounds: Normal breath sounds. Musculoskeletal: Right lower leg: No edema. Left lower leg: No edema. Skin: General: Skin is warm and dry. Neurological: General: No focal deficit present. Mental Status: He is alert and oriented to person, place, and time. Psychiatric: Mood and Affect: Mood normal. Behavior: Behavior normal. ASSESSMENT: healthy adult male Diagnosis Orders 1. Annual physical exam 2. Testosterone deficiency 3. Screening for deficiency anemia CBC with auto differential 4. Screening for endocrine, nutritional, metabolic and immunity disorder Comprehensive metabolic panel 5. Lipid screening Lipid panel 6. Thyroid disorder screen Thyroid Function [place] 7. Encounter for screening examination for intermediate hyperglycemia and diabetes mellitus Hemoglobin A1c 8. Encounter for hepatitis C screening test for low risk patient Hepatitis C antibody Blood 9. Class 1 obesity due to excess calories without serious comorbidity with body mass index (BMI) of34.0 to 34.9 in adult discussed weight loss medications. unable to tolerate Phentermine d/t adverse side effects PLAN: continue current medications and return for routine annual checkups Tracy De La Torre NP documented in this encounter Miscellaneous Notes * Assessment & Plan Note - Tracy De La Torre NP - 05/16/2024 4:29 PM CDTAssociated Problem(s): Testosterone deficiency Patient continues Xyosted per Dr Ren (Urology) documented in this encounter Plan of Treatment Not on file documented as of this encounter Results * Hepatitis C antibody Blood (05/16/2024 [...] - GENERAL ORDER FORREST Final Result YAAKOV [id number] [address] Department [place] [address] * (ABNORMAL) Hemoglobin A1c (05/16/2024 12:00 PM CDT) Hgb A1C 5.9(H) 4.0 - 5.6 % Estimated Average Glucose 123 mg/dL YAAKOV FIORE Comment: The ADA recommends reporting an estimated Average Glucose (eAG) with all Hemoglobin A1c results using the equation derived from a study of 507 normal and diabetic adults. ??Minority populations were underrepresented and children were not included. ?? (Diabetes Care 31:5572-4119, 2008). ??The eAG is not equivalent to a fasting glucose. Blood 05/16/2024 12:0 0 PM CDT 05/16/2024 8:49 PM CDT us Tracy De La Torre HAIR COLORIST LAB BLOOD ORDERABLES Final Resul t Performing Organization Address [facility] de Phone Number YAAKOV [id number] [address] [facility] [place] [address] * Thyroid Function [place] (05/16/2024 12:00 PM CDT) TSH 2.27 0.30 - 4.20 mcIUnit/mL Blood 05/16/2024 12:0 0 PM CDT 05/16/2024 8:49 PM CDT us Molina De La Torre HAIR COLORIST LAB BLOOD ORDERABLES Final Resul t Performing Organization Address [facility] Phone Number MICHELEMIA [address] [address] Department [place] [address] * (ABNORMAL) Lipid panel (05/16/2024 12:00 PM CDT) Cholesterol 241(H) 30 - 199 mg/dL Comment: [...] on 2018. HDL 31(L) >=40 mg/dL YAAKOV FIORE Comment: Interpretive Data Ages [...] 2018. LDL, calculated 154(H) <=129 mg/dL YAAKOV FIORE Comment: Interpretive Data Ages [...] NCEP Expert Panel. Circulation 2004;110:227 3. Rustam M et al. AUGUST Cardiol. 2020 December 20;5(5):540-548. [...] last revised on 2018. Chol/HDL ratio 8 YAAKOV Blood 05/16/2024 12:0 0 PM CDT 05/16/2024 8:49 PM CDT us Tarcy De La Torre NP LAB BLOOD ORDERABLES Final Resul t YAAKOV FIORE [id number] [address] Department [place] [address] * (ABNORMAL) Comprehensive metabolic panel (05/16/2024 12:00 PM CDT) Sodium 138 135 - 145 mmol/L Potassium, pl 3.9 3.3 - 4.9 mmol/L [facility] Chloride 102 97 - 110 mmol/L [facility] CO2 24 22 - 32 mmol/L [facility] Anion gap 12 2 - 15 mmol/L [facility] BUN 14 6 - 25 mg/dL [facility] Creatinine 0.89 0.80 - 1.30 mg/dL [facility] Glucose 88 70 - 199 mg/dL [facility] Comment: Interpretive Data Fasting glucose >/= 126 [...] classification and Diagnosis of Diabetes Diabetes Care 2021; 46: S19-S40. Current interpretive data was last [...] LAB BLOOD ORDERABLES Final Resul t YAAKOV [id number] Department [place] [address] * (ABNORMAL) CBC with auto differential (05/16/2024 12:00 PM CDT) Pathologist [facility] WBC 10.8(H) 3.8 - 9.9 K/cumm Hgb 17.3 13.0 - 17.5 g/dL [facility] Hct 51.2(H) 38.9 - 50.3 % [facility] Plt 269 150 - 400 K/cumm [facility] MPV 9.9 9.1 - 12.3 fL [facility] RBC 5.61 4.30 - 5.80 M/cumm [facility] MCV 91.3 81.3 - 96.4 fL [facility] MCH 30.8 27.1 - 33.3 pg [facility] MCHC 33.8 32.3 - 35.7 g/dL [facility] RDW CV 12.5 11.1 - 14.9 % [facility] RDW SD 41.2 35.7 - 48.1 fL [facility] NRBC abs 0.00 0.00 - 0.01 K/cumm [facility] Blood 05/16/2024 12:0 0 PM CDT 05/16/2024 8:49 PM CDT Tracy De La Torre NP LAB BLOOD ORDERABLES Final Resul t YAAKOV [id number] [address] Department of Laboratories [place] [id number] documented in this encounter Visit Diagnoses Diagnosis Annual physical exam- Primary Routine general medical examination at a health care facility Testosterone deficiency Other testicular hypofunction Screening for deficiency anemia Screening for other and unspecified deficiency anemia Screening for endocrine, nutritional, metabolic and immunity disorder Screening for other and unspecified endocrine, nutritional, metabolic, and immunity disorders Lipid screening Screening for lipoid disorders Thyroid disorder screen Screening for thyroid disorder Encounter for screening examination for intermediate hyperglycemia and diabetes mellitus Encounter for hepatitis C screening test for low risk patient Class 1 obesity due to excess calories without serious comorbidity with body mass index (BMI) of 34.0 to 34.9 in adult documented in this encounter Historical Medications * This list may reflect changes made after this encounter. famotidine (PEPCID) 20 mg tablet every 12 hours 04/09/2024 montelukast (SINGULAIR) 10 mg tablet Take 1 tablet (10 mg total) by mouth nightly 04/09/2024 Xyosted 75 mg/0.5 mL auto-injector 05/16/2024 Opzelura 1.5 % cream 05/03/2024 pimecrolimus (ELIDEL) 1 % cream Apply topically 2 (two) times a day 03/08/2024 clobetasoL (TEMOVATE) 0.05 % ointment 2 (two) times a day 03/05/2024 Dupixent Pen pen injector Inject 2 mL (300 mg total) under the skin every 14 (fourteen) days 05/05/2024 cetirizine (ZyrTEC) 10 mg tablet Take 1 tablet (10 mg total) by mouth daily 04/09/2024 albuterol HFA (PROVENTIL HFA,VENTOLIN HFA,PROAIR HFA) 90 mcg/actuation inhaler Inhale 2 puffs every 4 (four) hours as needed 04/09/2024 added in this encounter Care Teams Speech/Language Therapist Relationship Specialty Start Date End Date Tracy De La Torre NP [address] [facility] [address] [place], [place] [id number] PCP - General Family Medicine 05/16/24 Azra Pinon MD [address] [place] [address] Referring Physician Dermatology 05/16/24 Kathrine Ren MD [address] [place], [place] [id number] Consulting Physician Urology 05/16/24 Allison Holm [address] [facility] [address] [place] [address] Mud Mixer Operator Dermatology 05/16/24 documented as of this encounter
--- OUTSIDE RECORDS SUMMARY | 2024-08-31 12:52 | XMS_ITS | Referral Summary ---
Author Organization [address] Address [facility] [place] [address] Care Team Providers Care Food Production Associate Name Role Phone Tracy De La Torre NP Primary Care Provider [phone] Azra Pinon MD Unavailable [phone] Kathrine Ren MD Unavailable [phone] Encounters Date Type Department Care Team Description 08/23/2024 Telephone [facility] Medical Group Virtual Care [address] [place] [address] Mary Aguirre virtual care appointment 08/23/2024 Patient Self-Triage [facility] HealthCare/ Physicians [facility] [place] [address] Mychart, Generic Provider from Last [...] on file 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 Gender Identity Not on file Sexual Orientation [...] - GENERAL ORDER FORREST Final Result YAAKOV [id number] Department [place] [address] from Last 3 Months or Most Recently Relevant to Health Maintenance Insurance [facility] [place] HMO Care Teams Food Production Associate Relationship Specialty Start Date End Date Tracy De La Torre NP [address] [facility] [address] [place] [address] PCP - General Family Medicine 05/16/24 Azra Pinon MD [address] [place] [address] Referring Physician Dermatology 05/16/24 Kathrine Ren MD [address] [place] [address] Consulting Physician Urology 05/16/24 Allison Holm [address] [facility] [address] [place] [address] Senior Manufacturing Supervisor Dermatology 05/16/24
--- OUTSIDE RECORDS SUMMARY | 2024-08-31 12:52 | XMS_ITS | Encounter Summary ---
Author Organization [facility] Healthcare Address [address] [place] [address] Care Team Providers Care Tip Finisher Name Role Phone Tracy De La Torre NP Primary Care Provider Azra Pinon MD Unavailable [phone] Kathrine Ren MD Unavailable [phone] Reason for Visit * Reason Onset Date Comments PA for Wegovy 05/23/2024 Encounter Details Date Type Department Care Team (Late st Contact Info) Description 05/23/2024 Telephone [facility] Medical Group Primary Care at [address] [address] Tracy De La Torre NP [address] [place] [address] [address] [place] [address] PA for Wegovy Social History [...] on file 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 Wait for Determination [facility]. documented in this encounter Plan of Treatment Not on file documented as of this encounter Visit Diagnoses Not on filedocumented in this encounter Care Teams Tip Finisher Relationship Specialty Start Date End Date Tracy De La Torre NP [address] [place] [address] PCP - General Family Medicine 05/16/24 Azra Pinon MD [address] [place] [address] Referring Physician Dermatology 05/16/24 Kathrine Ren MD [address] [place], [place] [id number] Consulting Physician Urology 05/16/24 Allison Holm [address] [facility] [address] [place] [address] Sales Commissions Analyst Dermatology 05/16/24 documented as of this encounter
--- OUTSIDE RECORDS SUMMARY | 2024-08-31 12:52 | XMS_ITS | Clinical Summary ---
Author Organization [address] Address [address] [place] [address] Care Team Providers Care Services Rep Name Role Phone Tracy De La Torre NP Primary Care Provider [phone] Azra Pinon MD Unavailable [phone] Kathrine Ren MD Unavailable [phone] Allergies Active Allergy Reactions Criticality Noted [...] Type Department Care Team Description 08/23/2024 Telephone [facility] Medical Group Virtual Care [address] [place] [address] Mary Aguirre virtual care appointment 08/23/2024 Patient Self-Triage [facility] HealthCare/ Physicians [address] [place] [address] Mychart, Generic Provider from Last 3 Months [...] on file 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 Gender Identity Not on file Sexual [...] - GENERAL ORDER FORREST Final Result YAAKOV [id number] [address] [place] [address] from Last 3 Months or Most Recently Relevant to Health Maintenance Insurance [employer] [facility] Care Teams Services Rep Relationship Specialty Start Date End Date Tracy De La Torre NP [address] [facility] [address] [place] [address] PCP - General Family Medicine 05/16/24 Azra Pinon MD [address] [place] [address] Referring Physician Dermatology 05/16/24 Kathrine Ren MD [address] [facility] [address] [place] [address] Consulting Physician Urology 05/16/24 Allison Holm [address] [facility] [address] [place] [address] Heat Set Operator Dermatology 05/16/24
--- OUTSIDE RECORDS SUMMARY | 2024-08-31 12:52 | XMS_ITS | Encounter Summary ---
Author Organization [facility] Healthcare Address [address] [place] [address] Care Team Providers Care Resident Care Assistant Name Role Phone Tracy De La Torre NP Primary Care Provider [phone] Azra Pinon MD Unavailable Kathrine Ren MD Unavailable [phone] Encounter Details Date Type Department Care Team (Late st Contact Info) Description 08/23/2024 Patient Self-Triage [facility] HealthCare/ Physicians [facility] [place] [address] Mychart, Generic Provider [address] [place], [place] [id number] Social History Tobacco Use Types Packs/Day Years [...] on file 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 [address] [place] [address] PCP - General Family Medicine 05/16/24 Azra Pinon MD [address] [place] [address] Referring Physician Dermatology 05/16/24 Kathrine Ren MD [address] [place], [place] [id number] Consulting Physician Urology 05/16/24 Allison Holm [address] [facility] [address] [place] [address] Entry Level Machine Operator Dermatology 05/16/24 documented as of this encounter
--- OUTSIDE RECORDS SUMMARY | 2024-08-31 12:52 | XMS_ITS | Encounter Summary ---
Author Organization [facility] Healthcare Address [address] [place] [address] Care Team Providers Care Sales Inspector Name Role Phone Tracy De La Torre NP Primary Care Provider [phone] Azra Pinon MD Unavailable [phone] Kathrine Ren MD Unavailable [phone] Reason for Visit * Reason Onset Date Comments virtual care appointment 08/23/2024 Encounter Details Date Type Department Care Team (Late st Contact Info) Description 08/23/2024 Telephone [facility] Medical Group Virtual Care [address] [place] [address] Mary Aguirre virtual care appointment Social [...] on file 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 I spoke to Vaughn, he will go to the . LE BAR MOLDER documented in this encounter Plan of Treatment Not on file documented as of this encounter Visit Diagnoses Not on filedocumented in this encounter Care Teams Sales Inspector Relationship Specialty Start Date End Date Tracy De La Torre NP [address] [place], [place] [id number] PCP - General Family Medicine 05/16/24 Azra Pinon MD [address] [place], [place] [id number] Referring Physician Dermatology 05/16/24 Kathrine Ren MD [address] [place] [address] Consulting Physician Urology 05/16/24 Allison Holm [address] [facility] [address] [place] [address] Material Man Dermatology 05/16/24 documented as of this encounter
--- OUTSIDE RECORDS SUMMARY | 2024-08-31 12:52 | XMS_ITS | Encounter Summary ---
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 73 m2 Comment: [...] BLOOD ORDERABLES Final Resul t YAAKOV FIORE [address] [place] [address] * (ABNORMAL) Differential, auto (05/16/2024 12:00 PM CDT) [facility] Neutrophil abs 5.6 1.5 - 6.5 K/cumm Imm gran abs 0.0 0.0 - 0.1 K/cumm [facility] Lymphocyte abs 3.4(H) 0.8 - 3.3 K/cumm [facility] Monocyte abs 1.0(H) 0.2 - 0.8 K/cumm [facility] Eosinophil abs 0.8(H) 0.0 - 0.5 K/cumm [facility] Basophil abs 0.1 0.0 - 0.1 K/cumm [facility] Neutrophil pct 51.6 % [facility] Comment: Interpretive Data Percent cell count reference ranges are not reported, since discordance with absolute values may lead to misinterpretation of CBC data. Current Interpretive Data was last revised on 2017. Imm gran pct 0.4 % [facility] Comment: Interpretive Data Percent cell count reference ranges are not reported, since discordance with absolute values may lead to misinterpretation of CBC data. Current Interpretive Data was last revised on 2017. Lymphocyte pct 31.0 % [facility] Comment: Interpretive Data Percent cell count reference ranges are not reported, since discordance with absolute values may lead to misinterpretation of CBC data. Current Interpretive Data was last revised on 2017. Monocyte pct 8.9 % [facility] Comment: Interpretive Data Percent cell count reference ranges are not reported, since discordance with absolute values may lead to misinterpretation of CBC data. Current Interpretive Data was last revised on 2017. Eosinophil pct 7.0 % [facility] Comment: Interpretive Data Percent cell count reference ranges are not reported, since discordance with absolute values may lead to misinterpretation of CBC data. Current Interpretive Data was last revised on 2017. Basophil pct 1.1 % [facility] Comment: Interpretive Data Percent cell count reference ranges are not reported, since discordance with absolute values may lead to misinterpretation of CBC data. Current Interpretive Data was last revised on 2017. Blood 05/16/2024 12:0 0 PM CDT 05/16/2024 8:49 PM CDT us Tracy De La Torre NP LAB BLOOD ORDERABLES Final Resul t YAAKOV FIORE [address] [place] [address] * (ABNORMAL) CBC with auto differential (05/16/2024 12:00 PM CDT) Pathologist [facility] WBC 10.8(H) 3.8 - 9.9 K/cumm Hgb [...] RDW SD 41.2 35.7 - 48.1 fL [facility] NRBC abs 0.00 0.00 - 0.01 K/cumm [facility] Blood 05/16/2024 12:0 0 PM CDT 05/16/2024 8:49 PM CDT Tracy De La Torre NP LAB BLOOD ORDERABLES Final Resul t [facility] [address] Department [place] [address] * (ABNORMAL) Comprehensive metabolic panel (05/16/2024 12:00 PM CDT) Pathologist [facility] Sodium 138 135 - 145 mmol/L Potassium, [...] BLOOD ORDERABLES Final Resul t YAAKOV FIORE [address] [place] [address] * (ABNORMAL) Lipid panel (05/16/2024 12:00 PM CDT) [facility] Cholesterol 241(H) 30 - 199 mg/dL Comment: [...] PM CDT us Tracy De La Torre MEDICAL RECEPTIONIST LAB BLOOD ORDERABLES Final Resul t Performing Organization Address [facility] Co de Phone Number YAAKOV FIORE [address] [place] [address] * Thyroid Function [place] (05/16/2024 12:00 PM CDT) [facility] TSH 2.27 0.30 - 4.20 mcIUnit/mL Blood 05/16/2024 12:0 0 PM CDT 05/16/2024 8:49 PM CDT Tracy De La Torre NP LAB BLOOD ORDERABLES Final Resul t Performing Organization Address [facility] de Phone Number YAAKOV FIORE [address] [employer] [place] [address] * (ABNORMAL) Hemoglobin A1c (05/16/2024 12:00 PM CDT) [facility] Hgb A1C 5.9(H) 4.0 - 5.6 % Estimated Average Glucose 123 mg/dL YAAKOV FIORE Comment: The ADA recommends reporting an estimated Average Glucose (eAG) with all Hemoglobin A1c results using the equation derived from a study of 507 normal and diabetic adults. ??Minority populations were underrepresented and children were not included. ?? (Diabetes Care 31:0511-1626, 2008). ??The eAG is not equivalent to a fasting glucose. Blood 05/16/2024 12:0 0 PM CDT 05/16/2024 8:49 PM CDT us Tracy De La Torre MEDICAL RECEPTIONIST LAB BLOOD ORDERABLES Final Resul t Performing Organization Address [facility] de Phone Number YAAKOV FIORE [address] [place] [address] * Hepatitis C antibody Blood (05/16/2024 12:00 PM CDT) [facility] Hep C Ab Nonreactive Nonreactive Comment: Interpretive [...] - GENERAL ORDER FORREST Final Result YAAKOV [address] Department [place] [address] documented in this encounter Visit Diagnoses Diagnosis [...] anemia documented in this encounter Care Teams Heat Engineering Teacher Relationship Specialty Start Date End Date Tracy De La Torre NP [address] [place], [place] [id number] PCP - General Family Medicine 05/16/24 Azra Pinon MD [address] [place] [address] Referring Physician Dermatology 05/16/24 Kathrine Ren MD [address] [place] [address] Consulting Physician Urology 05/16/24 Allison Holm [address] [facility] [address] [place] [address] Public Information Officer Dermatology 05/16/24 documented as of this encounter
--- OUTSIDE RECORDS SUMMARY | 2024-08-31 12:52 | XMS_ITS | Encounter Summary ---
Author Organization [facility] Healthcare Address [address] [place] [address] Care Team Providers Care Trip Rider Name Role Phone Tracy De La Torre NP Primary Care Provider [phone] Azra Pinon MD Unavailable [phone] Kathrine Ren MD Unavailable [phone] Encounter Details Date Type Department Care Team (Late st Contact Info) Description 05/21/2024 Orders Only [facility] Medical Group Primary Care at [address] [address] Tracy De La Torre NP [address] [place] [address] [address] [place] [address] Social History Tobacco Use Types [...] on file 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 Gender Identity Not on file Sexual Orientation [...] on filedocumented in this encounter Care Teams Trip Rider Relationship Specialty Start Date End Date Tracy De La Torre NP [address] [place], [place] [address] PCP - General Family Medicine 05/16/24 Azra Pinon MD [address] [place], [place] [id number] Referring Physician Dermatology 05/16/24 Kathrine Ren MD [address] [place] [address] Consulting Physician Urology 05/16/24 Allison Holm [address] [facility] [address] [place] [address] Director [place] Sales Dermatology 05/16/24 documented as of this encounter
--- OUTSIDE RECORDS SUMMARY | 2024-08-31 12:52 | XMS_ITS | Encounter Summary ---
Author Organization [facility] Healthcare Address [address] [place] [address] Care Team Providers Care Cotton Farmer Name Role Phone Tracy De La Torre NP Primary Care Provider [phone] Azra Pinon MD Unavailable [phone] Kathrine Ren MD Unavailable [phone] Reason for Visit * Reason Comments New Patient Encounter Details Date Type Department Care Team (Latest Contact Info) Description 05/16/2024 3:00 PM CDT Office Visit [facility] Medical [facility] Primary Care at [address] [address] Tracy De La Torre NP [address] [place] [address] [address] [place] [address] Annual physical exam (Primary Dx); [...] on file 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 Thyroid disorder screen Thyroid Function [place] 7. Encounter for screening examination for intermediate [...] - GENERAL ORDER FORREST Final Result YAAKOV [address] Department [place] [address] * (ABNORMAL) Hemoglobin A1c (05/16/2024 12:00 PM CDT) Hgb A1C 5.9(H) 4.0 - 5.6 % Estimated Average Glucose 123 mg/dL YAAKOV FIORE Comment: The ADA recommends reporting an estimated Average Glucose (eAG) with all Hemoglobin A1c results using the equation derived from a study of 507 normal and diabetic adults. ??Minority populations were underrepresented and children were not included. ?? (Diabetes Care 31:6613-0884, 2008). ??The eAG is not equivalent to a fasting glucose. Blood 05/16/2024 12:0 0 PM CDT 05/16/2024 8:49 PM CDT us Tracy De La Torre OTOLARYNGOLOGY REP LAB BLOOD ORDERABLES Final Resul t Performing Organization Address [facility] de Phone Number YAAKOV [address] [facility] [place] [address] * Thyroid Function [place] (05/16/2024 12:00 PM CDT) TSH 2.27 0.30 - 4.20 mcIUnit/mL Blood 05/16/2024 12:0 0 PM CDT 05/16/2024 8:49 PM CDT us Molina De La Torre OTOLARYNGOLOGY REP LAB BLOOD ORDERABLES Final Resul t Performing Organization Address [facility] Phone Number MICHELEMIA [address] [address] Department [facility] [place] [address] * (ABNORMAL) Lipid panel (05/16/2024 12:00 PM [...] BLOOD ORDERABLES Final Resul t YAAKOV FIORE [address] Department [place] [address] * (ABNORMAL) Comprehensive metabolic panel (05/16/2024 12:00 [...] LAB BLOOD ORDERABLES Final Resul t YAAKOV [address] [place] [address] * (ABNORMAL) CBC with auto differential (05/16/2024 12:00 PM CDT) Pathologist [facility] WBC 10.8(H) 3.8 - 9.9 K/cumm Hgb 17.3 13.0 - 17.5 g/dL [facility] Hct 51.2(H) 38.9 - 50.3 % [facility] Plt 269 150 - 400 K/cumm [facility] MPV 9.9 9.1 - 12.3 fL [facility] RBC 5.61 4.30 - 5.80 M/cumm [facility] MCV 91.3 81.3 - 96.4 fL [facility] MCH 30.8 27.1 - 33.3 pg [facility] MCHC 33.8 32.3 - 35.7 g/dL [facility] RDW CV 12.5 11.1 - 14.9 % [facility] RDW SD 41.2 35.7 - 48.1 fL [facility] NRBC abs 0.00 0.00 - 0.01 K/cumm [facility] Blood 05/16/2024 12:0 0 PM CDT 05/16/2024 8:49 PM CDT Tracy De La Torre NP LAB BLOOD ORDERABLES Final Resul t YAAKOV [address] Department of Laboratories [place] [id number] documented in this encounter Visit Diagnoses Diagnosis [...] 04/09/2024 added in this encounter Care Teams Cotton Farmer Relationship Specialty Start Date End Date Tracy De La Torre NP [address] [facility] [address] [place], [place] [phone] PCP - General Family Medicine 05/16/24 Azra Pinon MD [address] [place] [address] Referring Physician Dermatology 05/16/24 Kathrine Ren MD [address] [place], [place] [id number] Consulting Physician Urology 05/16/24 Allison Holm [address] [facility] [address] [place] [address] Dye Range Operator Dermatology 05/16/24 documented as of this encounter
--- OUTSIDE RECORDS SUMMARY | 2024-08-31 12:52 | XMS_ITS | Encounter Summary ---
Author Organization [facility] Healthcare Address [address] [place] [address] Care Team Providers Care Information Technology Administrator Name Role Phone Tracy De La Torre NP Primary Care Provider [phone] Azra Pinon MD Unavailable [phone] Kathrine Ren MD Unavailable [phone] Encounter Details Date Type Department Care Team (Late st Contact Info) Description 05/16/2024 3:[address] 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 Gender Identity Not on file Sexual Orientation Not on file documented as of this encounter Plan of Treatment Not on file documented as of this encounter Visit Diagnoses Diagnosis Screening for deficiency anemia- Primary Screening for other and unspecified deficiency anemia documented in this encounter Care Teams Information Technology Administrator Relationship Specialty Start Date End Date Tracy De La Torre NP [address] [place] [address] PCP - General Family Medicine 05/16/24 Azra Pinon MD [address] [place] [address] Referring Physician Dermatology 05/16/24 Kathrine Ren MD [address] [place], [place] [id number] Consulting Physician Urology 05/16/24 Allison Holm 2022 [facility] [address] [place] [address] Claims Administrator Dermatology 05/16/24 documented as of this encounter
== END 2024-08-24 08:35 | disposition home or self-care (01) ==
LOC: ANHED 07:34
PROVIDERS: Emergency Provider Emergency Medicine; PCP Nurse Practitioner Family
DX: N20.0 Calculus of kidney (principal)
CPT/HCPCS: 36415; 74176; 76870; 80053; 81003; 85025; 93976; 96361; 96374; 96375; 96376; 99284; A9270; J1171; J1885; J7030